=== PATIENT | female | born 1985 | race African-American/Black ===

== ENCOUNTER 2018-12-02 13:04 | Emergency (ER) | payer SELFPAY ==
--- NOTE | 2018-12-02 14:19 | RAD REPORT ---
EXAM DESCRIPTION: US - Abdomen Exam Limited - 12/02/2018 2:13 pm CLINICAL HISTORY: RUQ abd pain COMPARISON: No comparisons FINDINGS: The gallbladder demonstrates a large shadowing gallstone. No pericholecystic fluid or gall bladder wall thickening. The common bile duct is normal measuring 3 mm. The liver demonstrates no findings of intrahepatic biliary dilatation. IMPRESSION: Cholelithiasis.
[2018-12-02 14:25] LABS: Specific Gravity 1.025 (1.005-1.030)
[2018-12-02] MEDS ORDERED: ONDANSETRON 4 MG/2 ML VIAL ONE (14:25)
[2018-12-02] MEDS ORDERED: KETOROLAC 30 MG/ML INJ ONE (14:25)
[2018-12-02 14:40] LABS: Urine Bacteria 20-50 /HPF (<20); Urine Culture Reflex Order REFLEXED; Urine RBC <5 /HPF (NONE SEEN)
[2018-12-02] MEDS ORDERED: FENTANYL CITR 100 MCG/2 ML ONE (14:56)
[2018-12-02 14:58] LABS: Absolute Lymphocytes (CBC) 2.5 K/uL (0.7-4.9); Basophils % 0.6 % (0-1.3); Hematocrit 34.8 % (36.0-45.0); Lymphocytes % 24.2 % (15.3-44.8); MPV 8.5 fL (7.6-11.3); RBC Red Blood Cell Count 4.42 M/uL (3.86-4.86)
[2018-12-02 15:08] LABS: ALT/SGPT 18 U/L (12-78); AST/SGOT 11 U/L (15-37); Albumin 3.7 g/dL (3.4-5.0); Alkaline Phosphatase 90 U/L (45-117); BUN Blood Urea Nitrogen 10 mg/dL (7-18); Bicarbonate 25 mmol/L (21-32); Bilirubin Direct < 0.1 mg/dL (0-0.2); Bilirubin Total 0.3 mg/dL (0.2-1.0); Glucose Level 102 mg/dL (74-106); Lipase 104 U/L (73-393); Potassium 3.9 mmol/L (3.5-5.1); Protein, Total 7.5 g/dL (6.4-8.2); Sodium Level 140 mmol/L (136-145)
--- NOTE | 2018-12-02 16:09 | RAD REPORT ---
EXAM DESCRIPTION: CT - Abdomen Pelvis W Contrast - 12/02/2018 3:44 pm CLINICAL HISTORY: Abdominal pain COMPARISON: none. TECHNIQUE: Computed axial tomography of the abdomen pelvis was obtained. 100 cc Isovue-300 was admin istered intravenously. Oral contrast was not requested which limits evaluation of bowel. All CT scans are performed using dose optimization technique as appropriate and may include automated exposure control or mA/KV adjustment according to patient size. FINDINGS: 18 millimeter gallstone. Gallbladder wall does not appear thickened. The liver, spleen, pancreas, adrenal and kidneys appear unremarkable. There is no evidence of diverticulitis. Appendix is normal caliber Moderate amount stool within the colon IMPRESSION: Cholelithiasis
--- NOTE | 2018-12-02 17:09 | EDPHYS ---
Physician Documentation [facility] Name: Eliz Carbone Age: 33 yrs Sex: Female : 1985 Arrival Date: 12/02/2018 Time: 13:07 Bed 19 Private MD: ED Physician Leonardo Nuñez HPI: 12/02 13:52 This 33 yrs old Black Female presents to ER via Ambulatory with complaints of Abdominal wa Pain. 13:52 The patient presents with abdominal pain in the epigastric area, in the upper abdomen, wa in the right upper quadrant. Onset: The symptoms/episode began/occurred today. The symptoms do not radiate. Associated signs and symptoms: none. The symptoms are described as crampy. Modifying factors: The symptoms are alleviated by nothing, the symptoms are aggravated by nothing. Severity of pain: At its worst the pain was moderate in the emergency department the pain is actually worse moderately. The patient has experienced similar episodes in the past, a few times, h/o gallstones. The patient has not recently seen a physician. states has h/o gallstones. RUQ abd pain today. pt tearful. denies n/v. denies fever. . 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 - Social history:: Smoking status: Patient uses tobacco products, cigars. - Ebola Screening: : Patient negative for fever greater than or equal to 101.5 degrees Fahrenheit, and additional compatible Ebola Virus Disease symptoms Patient denies exposure to infectious person Patient denies travel to an Ebola-affected area in the 21 days before illness onset No symptoms or risks identified at this time. - Family history:: not pertinent. - Hospitalizations: : No recent hospitalization is reported. ROS: 13:54 Constitutional: Negative for fever, chills, and weight loss, Eyes: Negative for injury, wa pain, redness, and discharge, ENT: Negative for injury, pain, and discharge, Neck: Negative for injury, pain, and swelling, Cardiovascular: Negative for chest pain, palpitations, and edema, Respiratory: Negative for shortness of breath, cough, wheezing, and pleuritic chest pain, Back: Negative for injury and pain, : Negative for injury, bleeding, discharge, and swelling, MS/Extremity: Negative for injury and deformity, Skin: Negative for injury, rash, and discoloration, Neuro: Negative for headache, weakness, numbness, tingling, and seizure, Psych: Negative for depression, anxiety, suicide ideation, homicidal ideation, and hallucinations. 13:54 Abdomen/GI: Positive for abdominal pain, of the epigastric area and right upper quadrant, Negative for nausea, vomiting, and diarrhea. 13:54 All other systems are negative. Exam: 13:54 Constitutional: This is a well developed, well nourished patient who is awake, alert, wa and in no acute distress. Head/Face: Normocephalic, atraumatic. Eyes: Pupils equal round and reactive to light, extra-ocular motions intact. Lids and lashes normal. Conjunctiva and sclera are non-icteric and not injected. Cornea within normal limits. Periorbital areas with no swelling, redness, or edema. ENT: Nares patent. No nasal discharge, no septal abnormalities noted. Tympanic membranes are normal and external auditory canals are clear. Oropharynx with no redness, swelling, or masses, exudates, or evidence of obstruction, uvula midline. Mucous membranes moist. Neck: Trachea midline, no thyromegaly or masses palpated, and no cervical lymphadenopathy. Supple, full range of motion without nuchal rigidity, or vertebral point tenderness. No Meningismus. Chest/axilla: Normal chest wall appearance and motion. Nontender with no deformity. No lesions are appreciated. Cardiovascular: Regular rate and rhythm with a normal S1 and S2. No gallops, murmurs, or rubs. Normal PMI, no JVD. No pulse deficits. Respiratory: Lungs have equal breath sounds bilaterally, clear to auscultation and percussion. No rales, rhonchi or wheezes noted. No increased work of breathing, no retractions or nasal flaring. Back: No spinal tenderness. No costovertebral tenderness. Full range of motion. Skin: Warm, dry with normal turgor. Normal color with no rashes, no lesions, and no evidence of cellulitis. MS/ Extremity: Pulses equal, no cyanosis. Neurovascular intact. Full, normal range of motion. Neuro: Awake and alert, GCS 15, oriented to person, place, time, and situation. Cranial nerves II-XII grossly intact. Motor strength 5/5 in all extremities. Sensory grossly intact. Cerebellar exam normal. Normal gait. Psych: Awake, alert, with orientation to person, place and time. Behavior, mood, and affect are within normal limits. 13:54 Abdomen/GI: Inspection: abdomen appears normal, Bowel sounds: normal, in all quadrants, Palpation: moderate abdominal tenderness, in the epigastric area and right upper quadrant, no appreciated organomegaly. Vital Signs: 13:29 BP 128 / 77; Pulse 92; Resp 16 S; Temp 98.1(O); Pulse Ox 100% on R/A; Pain 10/10; iw 14:47 BP 136 / 93; Pulse 88; Resp 16; Pulse Ox 97% ; bp 16:30 BP 118 / 84; Pulse 63; Resp 17; Pulse Ox 98% ; bp 17:21 BP 121 / 87; Pulse 72; Resp 17; Temp 98.1; Pulse Ox 100% ; bp MDM: 13:[address] 13:55 Differential diagnosis: appendicitis, bowel obstruction, cholecystitis, Cholelithiasis, ct gastritis, gastroesophageal reflux disease, non-specific abd pain. 17:06 Data reviewed: vital signs, nurses notes. Test interpretation: by ED physician or ct midlevel provider: labs noted wnl. US abd and CT abd/pelvis: noted for gallstones. no "itis". Response to treatment: the patient's symptoms have markedly improved after treatment. ED course: improved. will d/c home with f/u with general surgery. 12/02 13:47 Order name: Basic Metabolic Panel; Complete Time: 16:14 ct 12/02 13:47 Order name: CBC with Diff; Complete Time: 16:14 ct 12/02 13:47 Order name: Hepatic Function; Complete Time: 16:14 ct 12/02 13:47 Order name: Lipase; Complete Time: 16:14 ct 12/02 13:47 Order name: Urine Microscopic Only; Complete Time: 14:48 ct 12/02 14:16 Order name: Urine Dipstick--Ancillary (enter results) 12/02 13:47 Order name: IV Saline Lock; Complete Time: 14:45 ct 12/02 13:47 Order name: US Abdomen Limited; Complete Time: 14:48 ct 12/02 13:50 Order name: CT Abd/Pelvis - IV Contrast Only; Complete Time: 16:58 ct 12/02 14:18 Order name: Test, Urine; Complete Time: 14:47 EDDE 12/02 14:47 Order name: Urine Culture [facility] 12/02 13:47 Order name: Labs collected and sent; Complete Time: 14:45 ct 12/02 13:47 Order name: Urine Dipstick-Ancillary (obtain specimen); Complete Time: 14:16 ct 12/02 13:47 Order name: Urine Test (obtain specimen); Complete Time: 14:16 ct Administered Medications: 14:07 Drug: TORadol 30 mg Route: IVP; Site: right forearm; bp 16:54 Follow up: Response: Pain is decreased bp 14:07 Drug: Zofran 4 mg Route: IVP; Site: right forearm; bp 16:54 Follow up: Response: Nausea is decreased bp 15:00 Drug: fentaNYL (PF) 50 mcg Route: IVP; Site: right forearm; rb1 16:54 Follow up: Response: Pain is decreased bp Disposition: 12/02/18 17:08 Discharged to Home. Impression: Acute upper abdominal pain, cholelithiasis. - Condition is Stable. - Discharge Instructions: Cholelithiasis, [id number]. - Prescriptions for Zofran 4 mg Oral Tablet - take 1 tablet by ORAL route every 12 hours As needed; 20 tablet. Tramadol 50 mg Oral Tablet - take 1 tablet by ORAL route every 8 hours as needed; 20 tablet. - Medication Reconciliation Form, Thank You Letter, Antibiotic Education, Prescription Opioid Use form. - Follow up: Luigi Maxwell MD; When: 2 - 3 days; Reason: Re-evaluation by your physician. - Problem is new. - Symptoms have improved. - Notes: follow up with the surgeon for evaluation of your gallbladder as you may need surgery. take medication as prescribed. return here for sever pain and or vomiting Signatures: Dispatcher [employer] Meryl Hunter RN RN Florinda Dick RN RN rb1 Leonardo Nuñez MD MD wa Peltier, Brian, RN RN bp Corrections: (The following items were deleted from the chart) 16:09 16:08 Skin: lesion(s), noted, and can be described as noted stage II skin breakdown wa over the gluts bilaterally, wa 17:22 17:08 12/02/2018 17:08 Discharged to Home. Impression: Acute upper abdominal pain; bp cholelithiasis. Condition is Stable. Forms are Medication Reconciliation Form, Thank You Letter, Antibiotic Education, Prescription Opioid Use. Follow up: Luigi Maxwell; When: 2 - 3 days; Reason: Re-evaluation by your physician. Problem is new. Symptoms have improved. wa
--- NOTE | 2018-12-02 17:09 | ER ---
Nurse's Notes [facility] Name: Eliz Carbone Age: 33 yrs Sex: Female : 1985 Arrival Date: 12/02/2018 Time: 13:07 Bed 19 Private MD: Diagnosis: Acute upper abdominal pain;cholelithiasis Presentation: 12/02 13:26 Presenting complaint: Patient states: hx of gallstones, RUQ pain radiating to mid abd iw area since this morning, vomited once, pain is cramping 12/25. Transition of care: patient was not received from another setting of care. Onset of symptoms was December 02, 2018. Risk Assessment: Do you want to hurt yourself or someone else? Patient reports no desire to harm self or others. Initial Sepsis Screen: Does the patient meet any 2 criteria? No. Patient's initial sepsis screen is negative. Does the patient have a suspected source of infection? No. Patient's initial sepsis screen is negative. Care prior to arrival: None. 13:26 Method Of Arrival: Ambulatory iw 13:26 Acuity: ESTHELA 3 iw Triage Assessment: 13:30 General: Appears in no apparent distress. uncomfortable, obese, Behavior is bp cooperative, appropriate for age, anxious. Pain: Complains of pain in right upper quadrant. EENT: No deficits noted. Neuro: No deficits noted. Cardiovascular: No deficits noted. Respiratory: No deficits noted. GI: Reports upper abdominal pain, nausea. : No signs and/or symptoms were reported regarding the genitourinary system. Derm: No deficits noted. Musculoskeletal: No deficits noted. 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 - Social history:: Smoking status: Patient uses tobacco products, cigars. - Ebola Screening: : Patient negative for fever greater than or equal to 101.5 degrees Fahrenheit, and additional compatible Ebola Virus Disease symptoms Patient denies exposure to infectious person Patient denies travel to an Ebola-affected area in the 21 days before illness onset No symptoms or risks identified at this time. - Family history:: not pertinent. - Hospitalizations: : No recent hospitalization is reported. Screenin:34 Abuse screen: Denies threats or abuse. Denies injuries from another. Nutritional bp screening: No deficits noted. Tuberculosis screening: No symptoms or risk factors identified. Fall Risk None identified. Assessment: 13:34 General: SEE TRIAGE NOTE. bp 13:34 GI: Bowel sounds present X 4 quads. Abd is soft X 4 quads. bp 13:56 Reassessment: PT TO U/S. bp 15:00 Reassessment: Patient and/or family updated on plan of care and expected duration. Pain bp level reassessed. Patient is alert, oriented x 3, equal unlabored respirations, skin warm/dry/pink. CT PENDING. 16:31 Reassessment: PT RETURNED FROM CT. ALL CURRENT ORDERS COMPLETED. bp 17:19 Reassessment: PT D/C HOME AMBULATORY, DX WITH CHOLELITHIASIS. bp Vital Signs: 13:29 BP 128 / 77; Pulse 92; Resp 16 S; Temp 98.1(O); Pulse Ox 100% on R/A; Pain 10/10; iw 14:47 BP 136 / 93; Pulse 88; Resp 16; Pulse Ox 97% ; bp 16:30 BP 118 / 84; Pulse 63; Resp 17; Pulse Ox 98% ; bp 17:21 BP 121 / 87; Pulse 72; Resp 17; Temp 98.1; Pulse Ox 100% ; bp ED Course: 13:07 Patient arrived in ED. mr 13:22 eLonardo Nuñez MD is Attending Physician. wa 13:23 Ej Valerio, SHARRI is Primary Nurse. bp 13:28 Triage completed. iw 13:31 Arm band placed on. iw 13:34 Patient has correct armband on for positive identification. Bed in low position. Call bp light in reach. Side rails up X2. 14:00 Patient maintains SpO2 saturation greater than 95% on room air. jp3 14:00 Urine collected: clean catch specimen, clear, neisha colored. jp3 14:15 US Abdomen Limited In Process Unspecified. EDMS 14:16 Urine Microscopic Only Sent. jp3 14:30 Missed attempt(s): 22 gauge in right wrist. Bleeding controlled, band aid applied, jp3 catheter tip intact. 14:30 Inserted saline lock: 22 gauge in right forearm, using aseptic technique. Blood bp collected. 15:45 CT Abd/Pelvis - IV Contrast Only In Process Unspecified. EDMS 16:54 Urine Culture Sent. bp 17:07 Luigi Maxwell MD is Referral Physician. wa 17:20 No provider procedures requiring assistance completed. IV discontinued, intact, bp bleeding controlled, No redness/swelling at site. Pressure dressing applied. Administered Medications: 14:07 Drug: TORadol 30 mg Route: IVP; Site: right forearm; bp 16:54 Follow up: Response: Pain is decreased bp 14:07 Drug: Zofran 4 mg Route: IVP; Site: right forearm; bp 16:54 Follow up: Response: Nausea is decreased bp 15:00 Drug: fentaNYL (PF) 50 mcg Route: IVP; Site: right forearm; rb1 16:54 Follow up: Response: Pain is decreased bp Outcome: 17:08 Discharge ordered by . wa 17:20 Discharged to home ambulatory. bp 17:20 Condition: stable 17:20 Discharge instructions given to patient, Instructed on discharge instructions, follow up and referral plans. medication usage, Demonstrated understanding of instructions, follow-up care, medications, Prescriptions given X 2. 17:22 Patient left the ED. bp Signatures: Dispatcher [employer] EDIA Edmundo Rajani Meryl Salas, RN Florinda Sevilla, SHARRI RN rb1 Leonardo Nuñez MD MD wa Peltier, Brian, RN RN bp Monico Hurtado jp3
[2018-12-02 17:30] VITALS: TEMP 98.1
[2018-12-02 17:35] VITALS: BP 121/87; O2SAT 100
[2018-12-02 20:38] LABS: Urine Blood NEGATIVE (NEG); Urine Glucose NEGATIVE (NEG); Urine Protein NEGATIVE (NEG)
== END 2018-12-02 17:22 | disposition home or self-care (01) ==
LOC: ER 13:04
DX: K80.20 Calculus of gallbladder without cholecystitis without obstruction (principal); F17.290 Nicotine dependence, other tobacco product, uncomplicated; Z88.2 Allergy status to sulfonamides
CPT/HCPCS: 36415; 74177; 76705; 80048; 80076; 81003; 81015; 81025; 83690; 85025; 87086; 87088; 96374; 96375; 99284; J2405; J3010; Q9967

== ENCOUNTER 2018-12-17 20:02 | Emergency (ER) | payer SELFPAY ==
[2018-12-17] MEDS ORDERED: FAMOTIDINE 20 MG/2 ML VIAL IV ONE (21:23)
[2018-12-17] MEDS ORDERED: NA CHLORIDE 0.9% 1,000 ML ONE (21:23)
[2018-12-17] MEDS ORDERED: KETOROLAC 30 MG/ML INJ ONE ×2 (21:23→23:29)
[2018-12-17] MEDS ORDERED: DIPHENHYDRAMINE 50 MG/ML VIAL ONE (21:23)
[2018-12-17 22:10] LABS: Absolute Lymphocytes (CBC) 3.3 K/uL (0.7-4.9); Basophils % 0.2 % (0-1.3); Hematocrit 36.6 % (36.0-45.0); Lymphocytes % 24.1 % (15.3-44.8); MPV 8.1 fL (7.6-11.3); RBC Red Blood Cell Count 4.62 M/uL (3.86-4.86)
[2018-12-17 22:27] LABS: ALT/SGPT 19 U/L (12-78); AST/SGOT 14 U/L (15-37); Alkaline Phosphatase 92 U/L (45-117); BUN Blood Urea Nitrogen 9 mg/dL (7-18); Bicarbonate 26 mmol/L (21-32); Bilirubin Direct 0.1 mg/dL (0-0.2); Bilirubin Total 0.5 mg/dL (0.2-1.0); Glucose Level 94 mg/dL (74-106); Lipase 46 U/L (73-393); Potassium 3.8 mmol/L (3.5-5.1); Protein, Total 7.9 g/dL (6.4-8.2); Sodium Level 141 mmol/L (136-145)
--- NOTE | 2018-12-18 00:19 | ER ---
Nurse's Notes [facility] Name: Eliz Carbone Age: 33 yrs Sex: Female : 1985 Arrival Date: 12/17/2018 Time: 20:08 Bed 25 Private MD: Diagnosis: Allergy status to unspecified drugs, medicaments and biological substances status;Upper abdominal pain, unspecified;Cholelithiasis Presentation: 12/17 20:19 Presenting complaint: Patient states: RUQ pain started around 1700 today. I have ca1 gallstones and is scheduled to have a surgery but I have to go back home to [place] for that. Denies N/V/D. Pt also c/o of rash all over which started at the groin around 1230 today. Transition of care: patient was not received from another setting of care. Onset of symptoms was December 17, 2018 at 17:00. Risk Assessment: Do you want to hurt yourself or someone else? Patient reports no desire to harm self or others. Initial Sepsis Screen: Does the patient meet any 2 criteria? No. Patient's initial sepsis screen is negative. Does the patient have a suspected source of infection? No. Patient's initial sepsis screen is negative. Care prior to arrival: None. 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 - Social history:: Smoking status: Patient uses tobacco products, cigars. - Ebola Screening: : Patient negative for fever greater than or equal to 101.5 degrees Fahrenheit, and additional compatible Ebola Virus Disease symptoms Patient denies exposure to infectious person Patient denies travel to an Ebola-affected area in the 21 days before illness onset No symptoms or risks identified at this time. Screenin:25 Abuse screen: Denies threats or abuse. Denies injuries from another. Nutritional ca1 screening: No deficits noted. Tuberculosis screening: No symptoms or risk factors identified. Fall Risk None identified. Assessment: 20:25 General: Appears in no apparent distress. comfortable, Behavior is calm, cooperative, ca1 appropriate for age. Pain: Complains of pain in right upper quadrant Pain does not radiate. Pain currently is 8 out of 10 on a pain scale. Quality of pain is described as sharp, Pain began 4 hours ago. Is continuous. Neuro: Level of Consciousness is awake, alert, obeys commands, Oriented to person, place, time, situation. Cardiovascular: Heart tones S1 S2 present Capillary refill < 3 seconds Patient's skin is warm and dry. Pulses are all present. Respiratory: Airway is patent Respiratory effort is even, unlabored, Respiratory pattern is regular, symmetrical, Breath sounds are clear bilaterally. GI: Abdomen is round non-distended, Bowel sounds present X 4 quads. Abd is soft X 4 quads Abdomen is tender to palpation in right upper quadrant. : No deficits noted. No signs and/or symptoms were reported regarding the genitourinary system. EENT: No deficits noted. No signs and/or symptoms were reported regarding the EENT system. Derm: Skin is intact, is healthy with good turgor, Skin is pink, warm \T\ dry. Rash noted that is raised, on back, pelvis, right arm and left arm. Musculoskeletal: Circulation, motion, and sensation intact. Capillary refill < 3 seconds, Range of motion: intact in all extremities. 21:20 Reassessment: Patient appears in no apparent distress at this time. Patient and/or ca1 family updated on plan of care and expected duration. Pain level reassessed. Patient is alert, oriented x 3, equal unlabored respirations, skin warm/dry/pink. 22:23 Reassessment: Patient appears in no apparent distress at this time. Patient and/or ca1 family updated on plan of care and expected duration. Pain level reassessed. Patient is alert, oriented x 3, equal unlabored respirations, skin warm/dry/pink. 23:10 Reassessment: Patient appears in no apparent distress at this time. Patient and/or ca1 family updated on plan of care and expected duration. Pain level reassessed. Patient is alert, oriented x 3, equal unlabored respirations, skin warm/dry/pink. Ultrasound at bedside. Vital Signs: 20:23 BP 127 / 91; Pulse 98; Resp 17 S; Temp 98.5(O); Pulse Ox 100% on R/A; Weight 90.72 kg ca1 (R); Height 5 ft. 8 in. (172.72 cm) (R); Pain 8/10; 21:30 BP 115 / 88; Pulse 95; Resp 16 S; Pulse Ox 95% on R/A; ca1 22:24 BP 121 / 79; Pulse 96; Resp 16 S; Pulse Ox 99% on R/A; ca1 23:23 BP 95 / 67; Pulse 89; Resp 17 S; Pulse Ox 99% ; ca1 20:23 Body Mass Index 30.41 (90.72 kg, 172.72 cm) ca1 ED Course: 19:55 Inserted saline lock: 22 gauge in right hand, using aseptic technique. tr5 20:08 Patient arrived in ED. cf2 20:19 Viridiana Coughlin, SHARRI is Primary Nurse. ca1 20:22 Triage completed. ca1 20:23 Arm band placed on right wrist. ca1 20:25 Patient has correct armband on for positive identification. Bed in low position. Call ca1 light in reach. Side rails up X 1. Pulse ox on. NIBP on. Warm blanket given. 20:25 No provider procedures requiring assistance completed. ca1 20:31 Chery White FNP-C is PHCP. snw 20:31 Jorge Gilbert MD is Attending Physician. snw 21:30 Missed attempt(s): 22 gauge in left antecubital area. Bleeding controlled, band aid ca1 applied, catheter tip intact. 21:35 Missed attempt(s): 22 gauge in right antecubital area. Bleeding controlled, band aid ca1 applied, catheter tip intact. 22:03 Initial lab(s) drawn, by me, sent to lab. tr5 23:20 US Abdomen Limited In Process Unspecified. EDMS 12/18 00:43 IV discontinued. tr5 Administered Medications: 12/17 22:03 Drug: Benadryl 25 mg Route: IVP; Site: right hand; tr5 23:31 Follow up: Response: No adverse reaction; Marked relief of symptoms ca1 22:03 Drug: TORadol - Ketorolac 15 mg Route: IVP; Site: right hand; tr5 23:30 Follow up: Response: No adverse reaction; Pain is unchanged, physician notified ca1 22:04 Drug: NS 0.9% 1000 ml Route: IV; Rate: 1 bolus; Site: right hand; tr5 23:31 Follow up: Response: No adverse reaction; IV Status: Completed infusion; IV Intake: ca1 1000ml 22:04 Drug: Pepcid 10 mg Route: IVP; Site: right hand; tr5 23:31 Follow up: Response: No adverse reaction ca1 23:30 Drug: TORadol - Ketorolac 15 mg Route: IVP; Site: right hand; ca1 23:55 Follow up: Response: No adverse reaction; Pain is decreased ca1 Intake: 23:31 IV: 1000ml; Total: 1000ml. ca1 Outcome: 12/18 00:18 Discharge ordered by MD. lopez 00:42 Discharged to home ambulatory. tr5 00:42 Condition: stable 00:42 Discharge instructions given to patient, Instructed on discharge instructions, follow up and referral plans. medication usage, Demonstrated understanding of instructions, follow-up care, medications, Prescriptions given X 3. 00:43 Patient left the ED. tr5 Signatures: Dispatcher [employer] EDMS Chery White, SUPERVISOR FINISH END-C SUPERVISOR FINISH END-Moisésw Viridiana Coughlin RN RN ca1 Zeus Stiles RN RN tr5 Tristin Gauthier2
--- NOTE | 2018-12-18 00:19 | EDPHYS ---
Physician Documentation [facility] Name: Eliz Carbone Age: 33 yrs Sex: Female : 1985 Arrival Date: 12/17/2018 Time: 20:08 Bed 25 Private MD: ED Physician Jorge Gilbert HPI: 12/18 00:23 This 33 yrs old Black Female presents to ER via Ambulatory with complaints of Abdominal snw Pain, Rash. 00:23 The patient presents with abdominal pain in the right upper quadrant. Onset: The snw symptoms/episode began/occurred suddenly, and became worse and became persistent. The symptoms radiate to right back. Associated signs and symptoms: Pertinent positives: itching. The symptoms are described as constant, stabbing. Severity of pain: At its worst the pain was moderate in the emergency department the pain is unchanged. The patient has experienced similar episodes in the past, multiple times. Pt with known gallstones, just moved from [place] and needs a new doctor when her insurance. 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 - Social history:: Smoking status: Patient uses tobacco products, cigars. - Ebola Screening: : Patient negative for fever greater than or equal to 101.5 degrees Fahrenheit, and additional compatible Ebola Virus Disease symptoms Patient denies exposure to infectious person Patient denies travel to an Ebola-affected area in the 21 days before illness onset No symptoms or risks identified at this time. ROS: 12/18 00:21 Constitutional: Negative for fever, chills, and weight loss, Eyes: Negative for injury, snw pain, redness, and discharge, ENT: Negative for injury, pain, and discharge, Neck: Negative for injury, pain, and swelling, Cardiovascular: Negative for chest pain, palpitations, and edema, Respiratory: Negative for shortness of breath, cough, wheezing, and pleuritic chest pain, : Negative for injury, bleeding, discharge, and swelling, MS/Extremity: Negative for injury and deformity, Skin: Negative for injury and discoloration, + rash/hives, s/p having a 5 hour energy this am Neuro: Negative for headache, weakness, numbness, tingling, and seizure, Psych: Negative for depression, anxiety, suicide ideation, homicidal ideation, and hallucinations. Abdomen/GI: Positive for abdominal pain, of the right upper quadrant. Back: Positive for radiated pain, of the right mid back. Exam: 12/17 21:29 Constitutional: This is a well developed, well nourished patient who is awake, alert, snw and in no acute distress. Head/Face: Normocephalic, atraumatic. Eyes: Pupils equal round and reactive to light, extra-ocular motions intact. Lids and lashes normal. Conjunctiva and sclera are non-icteric and not injected. Cornea within normal limits. Periorbital areas with no swelling, redness, or edema. ENT: Nares patent. No nasal discharge, no septal abnormalities noted. Tympanic membranes are normal and external auditory canals are clear. Oropharynx with no redness, swelling, or masses, exudates, or evidence of obstruction, uvula midline. Mucous membranes moist. Neck: Trachea midline, no thyromegaly or masses palpated, and no cervical lymphadenopathy. Supple, full range of motion without nuchal rigidity, or vertebral point tenderness. No Meningismus. Chest/axilla: Normal chest wall appearance and motion. Nontender with no deformity. No lesions are appreciated. Cardiovascular: Regular rate and rhythm with a normal S1 and S2. No gallops, murmurs, or rubs. Normal PMI, no JVD. No pulse deficits. Respiratory: Lungs have equal breath sounds bilaterally, clear to auscultation and percussion. No rales, rhonchi or wheezes noted. No increased work of breathing, no retractions or nasal flaring. Back: No spinal tenderness. No costovertebral tenderness. Full range of motion. MS/ Extremity: Pulses equal, no cyanosis. Neurovascular intact. Full, normal range of motion. Neuro: Awake and alert, GCS 15, oriented to person, place, time, and situation. Cranial nerves II-XII grossly intact. Motor strength 5/5 in all extremities. Sensory grossly intact. Cerebellar exam normal. Normal gait. Psych: Awake, alert, with orientation to person, place and time. Behavior, mood, and affect are within normal limits. Abdomen/GI: Inspection: abdomen appears normal, Bowel sounds: normal, Palpation: moderate abdominal tenderness, in the right upper quadrant. Back: referred pain to right upper back. Vital Signs: 20:23 BP 127 / 91; Pulse 98; Resp 17 S; Temp 98.5(O); Pulse Ox 100% on R/A; Weight 90.72 kg ca1 (R); Height 5 ft. 8 in. (172.72 cm) (R); Pain 8/10; 21:30 BP 115 / 88; Pulse 95; Resp 16 S; Pulse Ox 95% on R/A; ca1 22:24 BP 121 / 79; Pulse 96; Resp 16 S; Pulse Ox 99% on R/A; ca1 23:23 BP 95 / 67; Pulse 89; Resp 17 S; Pulse Ox 99% ; ca1 20:23 Body Mass Index 30.41 (90.72 kg, 172.72 cm) ca1 MDM: 21:02 Patient medically screened. snw 12/18 00:20 Data reviewed: vital signs, nurses notes. Data interpreted: Pulse oximetry: on room air snw is 99 %. Interpretation: normal. Counseling: I had a detailed discussion with the patient and/or guardian regarding: the historical points, exam findings, and any diagnostic results supporting the discharge/admit diagnosis, lab results, radiology results, the need for outpatient follow up, to return to the emergency department if symptoms worsen or persist or if there are any questions or concerns that arise at home. Special discussion: Based on the patient's Hx, exam, and Dx evaluation, there is no indication for emergent surgery or inpatient Tx. It is understood by the patient/guardian that if the Sx's persist or worsen they need to return immediately for re-evaluation. Based on the history and exam findings, there is no indication for further emergent testing or inpatient evaluation. I discussed with the patient/guardian the need to see the general surgeon for further evaluation of the symptoms. I discussed with the patient/guardian the need to see the primary care provider for further evaluation of the symptoms. 12/17 21:01 Order name: Strep snw 12/17 21:12 Order name: Basic Metabolic Panel; Complete Time: 22:28 snw 12/17 21:12 Order name: CBC with Diff; Complete Time: 22:15 snw 12/17 21:12 Order name: Hepatic Function; Complete Time: 22:28 snw 12/17 21:12 Order name: Lipase; Complete Time: 22:28 snw 12/17 21:30 Order name: US Abdomen Limited snw 12/17 21:12 Order name: Labs collected and sent; Complete Time: 22:14 snw Administered Medications: 12/17 22:03 Drug: Benadryl 25 mg Route: IVP; Site: right hand; tr5 23:31 Follow up: Response: No adverse reaction; Marked relief of symptoms ca1 22:03 Drug: TORadol - Ketorolac 15 mg Route: IVP; Site: right hand; tr5 23:30 Follow up: Response: No adverse reaction; Pain is unchanged, physician notified ca1 22:04 Drug: NS 0.9% 1000 ml Route: IV; Rate: 1 bolus; Site: right hand; tr5 23:31 Follow up: Response: No adverse reaction; IV Status: Completed infusion; IV Intake: ca1 1000ml 22:04 Drug: Pepcid 10 mg Route: IVP; Site: right hand; tr5 23:31 Follow up: Response: No adverse reaction ca1 23:30 Drug: TORadol - Ketorolac 15 mg Route: IVP; Site: right hand; ca1 23:55 Follow up: Response: No adverse reaction; Pain is decreased ca1 Disposition: 12/18 05:12 Co-signature as Attending Physician, Jorge Gilbert MD Available for consultation at ps1 all times . Disposition: 12/18/18 00:18 Discharged to Home. Impression: Allergy status to unspecified drugs, medicaments and biological substances status, Upper abdominal pain, unspecified, Cholelithiasis. - Condition is Stable. - Discharge Instructions: Abdominal Pain, Adult, Allergies, Adult, Biliary Colic, Adult, Fat and Cholesterol Restricted Diet, Cholelithiasis, Rehydration, Adult. - Prescriptions for Bentyl 20 mg Oral Tablet - take 1 tablet by ORAL route every 6 hours As needed; 20 tablet. Diclofenac Sodium 75 mg Oral Tablet Sustained Release - take 1 tablet by ORAL route 2 times per day; 30 tablet. promethazine 25 mg Oral Tablet - take 1 tablet by ORAL route every 6 hours As needed; 20 tablet. - Work release form, Medication Reconciliation Form, Thank You Letter, Antibiotic Education, Prescription Opioid Use form. - Follow up: Emergency Department; When: As needed; Reason: Worsening of condition. Follow up: Private Physician; When: 1 - 2 days; Reason: Recheck today's complaints, Continuance of care, Re-evaluation by your physician. Signatures: Dispatcher [employer] EDMS Chery White, RACK MAKER-C RACK MAKER-Csnw Jorge Gilbert MD MD ps1 Viridiana Coughlin RN RN ca1 Zeus Stiles RN RN tr5 Corrections: (The following items were deleted from the chart) 00:43 00:18 12/18/2018 00:18 Discharged to Home. Impression: Allergy status to unspecified tr5 drugs, medicaments and biological substances status; Upper abdominal pain, unspecified; Cholelithiasis. Condition is Stable. Forms are Medication Reconciliation Form, Thank You Letter, Antibiotic Education, Prescription Opioid Use. Follow up: Emergency Department; When: As needed; Reason: Worsening of condition. Follow up: Private Physician; When: 1 - 2 days; Reason: Recheck today's complaints, Continuance of care, Re-evaluation by your physician. snw
[2018-12-18 00:48] VITALS: TEMP 98.5
[2018-12-18 00:50] VITALS: O2SAT 99
[2018-12-18 00:51] VITALS: BP 95/67
--- NOTE | 2018-12-18 08:09 | RAD REPORT ---
EXAM DESCRIPTION: US - Abdomen Exam Limited - 12/17/2018 11:19 pm CLINICAL HISTORY: ABD PAIN COMPARISON: Abdomen Exam Limited dated 12/02/2018 FINDINGS: The gallbladder demonstrates a shadowing gallstone. No pericholecystic fluid or gallbladde r wall thickening. The common bile duct is normal measuring 3 mm. The liver demonstrates no findings of intrahepatic biliary dilatation. IMPRESSION: Cholelithiasis.
== END 2018-12-18 00:43 | disposition home or self-care (01) ==
LOC: ER 20:02
DX: K80.20 Calculus of gallbladder without cholecystitis without obstruction (principal); Z88.9 Allergy status to unspecified drugs, medicaments and biological substances; Z72.0 Tobacco use; Z88.2 Allergy status to sulfonamides
CPT/HCPCS: 36415; 76705; 80048; 80076; 83690; 85025; 87070; 87081; 96361; 96374; 96375; 99284; J7030

== ENCOUNTER 2019-02-10 16:17 | Emergency (ER) | payer SELFPAY ==
--- OUTSIDE RECORDS SUMMARY | 2019-02-10 16:19 | XMS REPORT ---
:1985 Author Organization [facility] Address [address] [place] [address] [address] [place] [address] Care Team Providers Name Role Phone Unavailable Unavailable Unavailable Problems This patient has no known problems. Allergies, Adverse Reactions, Alerts This patient has no known allergies or adverse reactions. Medications This patient has no known medications. Encounters Start End Encounter Admission Attending Care Care Encounter Date/Time Date/Time Type Type Clinicians Facility Department ID 2018-11-19 2018-11-19 Emergency E [id number] 18:06:00 18:06:00 2018-08-25 2018-08-25 Emergency E [id number] 09:01:00 09:01:00
[2019-02-10] MEDS ORDERED: MORPHINE 2 MG/ML SYR ONE (16:58)
[2019-02-10] MEDS ORDERED: NA CHLORIDE 0.9% 1,000 ML ONE (16:58)
[2019-02-10] MEDS ORDERED: ONDANSETRON 4 MG/2 ML VIAL ONE (16:58)
[2019-02-10 17:04] LABS: Urine Blood NEGATIVE (NEG); Urine Glucose NEGATIVE (NEG); Urine Protein NEGATIVE (NEG); Urine pH 6.5 (5.0-7.0)
[2019-02-10 17:05] LABS: Absolute Lymphocytes (CBC) 2.5 K/uL (0.7-4.9); Basophils % 0.4 % (0-1.3); Hematocrit 34.1 % (36.0-45.0); Lymphocytes % 25.1 % (15.3-44.8); MPV 8.2 fL (7.6-11.3); RBC Red Blood Cell Count 4.36 M/uL (3.86-4.86)
[2019-02-10 17:19] LABS: ALT/SGPT 27 U/L (12-78); AST/SGOT 23 U/L (15-37); Albumin 3.5 g/dL (3.4-5.0); Alkaline Phosphatase 93 U/L (45-117); BUN Blood Urea Nitrogen 12 mg/dL (7-18); Bicarbonate 25 mmol/L (21-32); Bilirubin Direct < 0.1 mg/dL (0-0.2); Bilirubin Total 0.3 mg/dL (0.2-1.0); Glucose Level 99 mg/dL (74-106); Lipase 82 U/L (73-393); Protein, Total 7.2 g/dL (6.4-8.2); Sodium Level 140 mmol/L (136-145)
--- NOTE | 2019-02-10 18:51 | EDPHYS ---
Physician Documentation [facility] Name: Eliz Carbone Age: 33 yrs Sex: Female : 1985 Arrival Date: 02/10/2019 Time: 16:19 Bed 25 Private MD: ED Physician Juan Mendiola HPI: 02/10 16:42 This 33 yrs old Black Female presents to ER via Ambulatory with complaints of Abdominal jose Pain, Back Pain. 16:42 This 33 yrs old Black Female presents to ER via Ambulatory with complaints of Abdominal jose Pain, Back Pain. 16:42 The patient presents with pain that is acute, with no known mechanism of injury. The jose symptoms are located in the right mid back. Onset: The symptoms/episode began/occurred 1 day(s) ago. The pain radiates to the right mid back. Associated signs and symptoms: The patient has no apparent associated signs or symptoms. The problem was sustained eating. Modifying factors: The patient symptoms are alleviated by nothing, the patient symptoms are aggravated by food. Severity of symptoms: At their worst the symptoms were mild, moderate, in the emergency department the symptoms are unchanged. The patient has not experienced similar symptoms in the past. 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 - Social history:: Smoking status: Patient uses tobacco products, denies chronic smoking, but will smoke occasionally. - Ebola Screening: : No symptoms or risks identified at this time. - Family history:: not pertinent. ROS: 16:42 Constitutional: Negative for fever, chills, and weight loss, Eyes: Negative for injury, jose pain, redness, and discharge, ENT: Negative for injury, pain, and discharge, Neck: Negative for injury, pain, and swelling, Cardiovascular: Negative for chest pain, palpitations, and edema, Respiratory: Negative for shortness of breath, cough, wheezing, and pleuritic chest pain, Back: Negative for injury and pain, : Negative for injury, bleeding, discharge, and swelling, MS/Extremity: Negative for injury and deformity, Skin: Negative for injury, rash, and discoloration, Neuro: Negative for headache, weakness, numbness, tingling, and seizure, Psych: Negative for depression, anxiety, suicide ideation, homicidal ideation, and hallucinations, Allergy/Immunology: Negative for hives, rash, and allergies, Endocrine: Negative for neck swelling, polydipsia, polyuria, polyphagia, and marked weight changes, Hematologic/Lymphatic: Negative for swollen nodes, abnormal bleeding, and unusual bruising. 16:42 Abdomen/GI: Positive for abdominal pain, of the right upper quadrant. Exam: 16:42 Constitutional: This is a well developed, well nourished patient who is awake, alert, jose and in no acute distress. Head/Face: Normocephalic, atraumatic. Eyes: Pupils equal round and reactive to light, extra-ocular motions intact. Lids and lashes normal. Conjunctiva and sclera are non-icteric and not injected. Cornea within normal limits. Periorbital areas with no swelling, redness, or edema. ENT: Nares patent. No nasal discharge, no septal abnormalities noted. Tympanic membranes are normal and external auditory canals are clear. Oropharynx with no redness, swelling, or masses, exudates, or evidence of obstruction, uvula midline. Mucous membranes moist. Neck: Trachea midline, no thyromegaly or masses palpated, and no cervical lymphadenopathy. Supple, full range of motion without nuchal rigidity, or vertebral point tenderness. No Meningismus. Chest/axilla: Normal chest wall appearance and motion. Nontender with no deformity. No lesions are appreciated. Cardiovascular: Regular rate and rhythm with a normal S1 and S2. No gallops, murmurs, or rubs. Normal PMI, no JVD. No pulse deficits. Respiratory: Lungs have equal breath sounds bilaterally, clear to auscultation and percussion. No rales, rhonchi or wheezes noted. No increased work of breathing, no retractions or nasal flaring. Back: No spinal tenderness. No costovertebral tenderness. Full range of motion. Skin: Warm, dry with normal turgor. Normal color with no rashes, no lesions, and no evidence of cellulitis. MS/ Extremity: Pulses equal, no cyanosis. Neurovascular intact. Full, normal range of motion. Neuro: Awake and alert, GCS 15, oriented to person, place, time, and situation. Cranial nerves II-XII grossly intact. Motor strength 5/5 in all extremities. Sensory grossly intact. Cerebellar exam normal. Normal gait. Psych: Awake, alert, with orientation to person, place and time. Behavior, mood, and affect are within normal limits. 16:42 Abdomen/GI: Bowel sounds: normal, in the right upper quadrant, Palpation: mild abdominal tenderness, Liver: no appreciated palpable abnormalities, Hernia: not appreciated. Vital Signs: 16:24 BP 122 / 82; Pulse 106; Resp 16; Temp 98.4; Pulse Ox 100% on R/A; Weight 90.72 kg; la1 Height 5 ft. 8 in. (172.72 cm); 19:03 BP 116 / 75; Pulse 92; Resp 18; Pulse Ox 97% on R/A; aj1 16:24 Body Mass Index 30.41 (90.72 kg, 172.72 cm) la1 MDM: 16:29 Patient medically screened. [facility] 16:44 Data reviewed: vital signs, nurses notes, lab test result(s), radiologic studies, [facility] ultrasound. 02/10 16:42 Order name: Basic Metabolic Panel; Complete Time: 17:23 [facility] 02/10 16:42 Order name: CBC with Diff; Complete Time: 17:23 [facility] 02/10 16:42 Order name: Creatinine for Radiology; Complete Time: 17:23 [facility] 02/10 16:42 Order name: Hepatic Function; Complete Time: 17:23 [facility] 02/10 16:42 Order name: Lipase; Complete Time: 17:23 [facility] 02/10 16:45 Order name: Urine Culture [facility] 02/10 16:42 Order name: IV Saline Lock; Complete Time: 16:59 [facility] 02/10 16:42 Order name: Labs collected and sent; Complete Time: 16:59 [facility] 02/10 16:42 Order name: US Abdomen Limited [facility] 02/10 16:47 Order name: Urine Dipstick--Ancillary (enter results); Complete Time: 17:23 02/10 16:47 Order name: Urine --Ancillary (enter results); Complete Time: 17:23 02/10 16:42 Order name: Urine Dipstick-Ancillary (obtain specimen); Complete Time: 16:59 [facility] 02/10 16:42 Order name: Urine Test (obtain specimen); Complete Time: 16:59 jose Administered Medications: 17:11 Drug: morphine 2 mg Route: IVP; Site: left antecubital; aj 19:05 Follow up: Response: No adverse reaction; Pain is decreased; RASS: Alert and Calm (0) [facility] 17:11 Drug: Zofran 4 mg Route: IVP; Site: left antecubital; aj1 19:05 Follow up: Response: No adverse reaction [facility] 17:12 Drug: NS 0.9% 1000 ml Route: IV; Rate: 1 bolus; Site: left antecubital; aj1 19:04 Follow up: IV Status: Completed infusion; IV Intake: 1000ml aj Disposition: 02/10/19 18:50 Discharged to Home. Impression: Abdominal tenderness, Cholelithiasis. - Condition is Stable. - Discharge Instructions: Abdominal Pain, Adult, Nausea and Vomiting, Adult, Cholelithiasis, Cholelithiasis, [id number], Abdominal Pain, Adult, [id number]. - Prescriptions for Bentyl 20 mg Oral Tablet - take 1 tablet by ORAL route every 6 hours As needed; 20 tablet. Pepcid 20 mg Oral Tablet - take 1 tablet by ORAL route every 12 hours for 10 days; 20 tablet. Zofran 4 mg Oral Tablet - take 1 tablet by ORAL route every 12 hours As needed; 20 tablet. - Work release form, Medication Reconciliation Form, Thank You Letter, Antibiotic Education, Prescription Opioid Use form. - Follow up: Private Physician; When: 2 - 3 days; Reason: Recheck today's complaints, Continuance of care, Re-evaluation by your physician. Follow up: Rian Lopez; When: 2 - 3 days; Reason: Recheck today's complaints, Re-evaluation by your physician. - Problem is new. - Symptoms have improved. Signatures: Dispatcher [employer] EDUma Jin RN RN aj1 Juan Mendiola MD MD cha Attema, Lee RN RN la1 Corrections: (The following items were deleted from the chart) 19:05 18:50 02/10/2019 18:50 Discharged to Home. Impression: Abdominal tenderness; aj1 Cholelithiasis. Condition is Stable. Discharge Instructions: Abdominal Pain, Adult, Nausea and Vomiting, Adult, Cholelithiasis, Cholelithiasis, [id number], Abdominal Pain, Adult, [id number]. Prescriptions for Bentyl 20 mg Oral Tablet - take 1 tablet by ORAL route every 6 hours As needed; 20 tablet, Pepcid 20 mg Oral Tablet - take 1 tablet by ORAL route every 12 hours for 10 days; 20 tablet, Zofran 4 mg Oral Tablet - take 1 tablet by ORAL route every 12 hours As needed; 20 tablet. and Forms are Medication Reconciliation Form, Thank You Letter, Antibiotic Education, Prescription Opioid Use. Follow up: Private Physician; When: 2 - 3 days; Reason: Recheck today's complaints, Continuance of care, Re-evaluation by your physician. Follow up: Rian Lopez; When: 2 - 3 days; Reason: Recheck today's complaints, Re-evaluation by your physician. Problem is new. Symptoms have improved. jose
--- NOTE | 2019-02-10 18:51 | ER ---
Nurse's Notes [facility] Name: Eliz Carbone Age: 33 yrs Sex: Female : 1985 Arrival Date: 02/10/2019 Time: 16:19 Bed 25 Private MD: Diagnosis: Abdominal tenderness;Cholelithiasis Presentation: 02/10 16:23 Presenting complaint: Patient states: RUQ and back pain since this morning. Transition la1 of care: patient was not received from another setting of care. Onset of symptoms was February 10, 2019. Risk Assessment: Do you want to hurt yourself or someone else? Patient reports no desire to harm self or others. Initial Sepsis Screen: Does the patient meet any 2 criteria? No. Patient's initial sepsis screen is negative. Does the patient have a suspected source of infection? No. Patient's initial sepsis screen is negative. Care prior to arrival: None. 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 - Social history:: Smoking status: Patient uses tobacco products, denies chronic smoking, but will smoke occasionally. - Ebola Screening: : No symptoms or risks identified at this time. - Family history:: not pertinent. Screenin:22 Abuse screen: Denies threats or abuse. Denies injuries from another. Nutritional aj1 screening: No deficits noted. Tuberculosis screening: No symptoms or risk factors identified. 19:04 Fall Risk None identified. aj1 Assessment: 17:22 General: Appears in no apparent distress. uncomfortable, Behavior is calm, cooperative, aj1 appropriate for age. Pain: Complains of pain in right upper quadrant Pain radiates to back. Neuro: Level of Consciousness is awake, alert, obeys commands, Oriented to person, place, time, situation. Cardiovascular: Patient's skin is warm and dry. Respiratory: Airway is patent Respiratory effort is even, unlabored, Respiratory pattern is regular, symmetrical. GI: Abdomen is flat, non-distended, Bowel sounds present X 4 quads. Abd is soft X 4 quads Abdomen is tender to palpation in right upper quadrant. : No signs and/or symptoms were reported regarding the genitourinary system. EENT: No signs and/or symptoms were reported regarding the EENT system. Derm: No signs and/or symptoms reported regarding the dermatologic system. Skin is pink, warm \T\ dry. normal. Musculoskeletal: No signs and/or symptoms reported regarding the musculoskeletal system. Circulation, motion, and sensation intact. 18:25 Reassessment: Patient appears in no apparent distress at this time. No changes from aj1 previously documented assessment. Patient and/or family updated on plan of care and expected duration. Pain level reassessed. Patient is alert, oriented x 3, equal unlabored respirations, skin warm/dry/pink. Vital Signs: 16:24 BP 122 / 82; Pulse 106; Resp 16; Temp 98.4; Pulse Ox 100% on R/A; Weight 90.72 kg; la1 Height 5 ft. 8 in. (172.72 cm); 19:03 BP 116 / 75; Pulse 92; Resp 18; Pulse Ox 97% on R/A; aj1 16:24 Body Mass Index 30.41 (90.72 kg, 172.72 cm) la1 ED Course: 16:19 Patient arrived in ED. mr 16:24 Triage completed. la1 16:25 Arm band placed on left wrist. la1 16:29 Juan Mendiola MD is Attending Physician. jose 16:43 Uma Anderson RN is Primary Nurse. aj1 16:57 Initial lab(s) drawn, by pa, sent to lab. Inserted saline lock: 22 gauge in right jb1 antecubital area, using aseptic technique. Blood collected. 16:58 Urine collected: clean catch specimen, clear, neisha colored. jb1 17:22 Patient has correct armband on for positive identification. Bed in low position. Call aj1 light in reach. 17:22 No provider procedures requiring assistance completed. aj1 18:50 Rian Lopez MD is Referral Physician. jose 18:50 Abdomen Limited In Process Unspecified. EDMS 19:04 IV discontinued, intact, bleeding controlled, No redness/swelling at site. Pressure aj1 dressing applied. Administered Medications: 17:11 Drug: morphine 2 mg Route: IVP; Site: left antecubital; aj1 19:05 Follow up: Response: No adverse reaction; Pain is decreased; RASS: Alert and Calm (0) aj1 17:11 Drug: Zofran 4 mg Route: IVP; Site: left antecubital; aj1 19:05 Follow up: Response: No adverse reaction aj1 17:12 Drug: NS 0.9% 1000 ml Route: IV; Rate: 1 bolus; Site: left antecubital; aj1 19:04 Follow up: IV Status: Completed infusion; IV Intake: 1000ml aj1 Intake: 19:04 IV: 1000ml; Total: 1000ml. aj1 Outcome: 18:50 Discharge ordered by . jose 19:04 Discharged to home ambulatory. aj 19:04 Condition: good 19:04 Discharge instructions given to patient, Instructed on discharge instructions, follow up and referral plans. medication usage, Demonstrated understanding of instructions, follow-up care, medications, Prescriptions given X 3. 19:05 Patient left the ED. aj1 Signatures: Dispatcher [employer] EDMS Tom Sherman jb1 Uma Anderson, RN RN aj1 Juan Mendiola MD MD cha Rivera, Mary mr Attema, Lee RN RN la1
[2019-02-10 19:34] VITALS: TEMP 98.4
[2019-02-10 19:36] VITALS: BP 116/75; O2SAT 97
--- NOTE | 2019-02-10 19:53 | RAD REPORT ---
EXAM DESCRIPTION: US - Abdomen Exam Limited - 02/10/2019 6:50 pm CLINICAL HISTORY: ABD PAIN COMPARISON: Abdomen Exam Limited dated 12/17/2018 FINDINGS: Multiple gallstones are present filling the lumen of the gallbladder. No wall thickening o r pericholecystic fluid identifiable. No common duct stone or biliary tree dilatation identified. IMPRESSION: Multi stone cholelithiasis. No biliary tree abnormality.
== END 2019-02-10 19:05 | disposition home or self-care (01) ==
LOC: ER 16:17
DX: K80.20 Calculus of gallbladder without cholecystitis without obstruction (principal); Z72.0 Tobacco use; Z88.2 Allergy status to sulfonamides
CPT/HCPCS: 36415; 76705; 80048; 80076; 81003; 81025; 83690; 85025; 87086; 87088; 96361; 96374; 96375; 99284; J2270; J2405; J7030

== ENCOUNTER 2019-04-02 02:24 | Inpatient (IN) | payer SELFPAY ==
--- OUTSIDE RECORDS SUMMARY | 2019-04-02 02:27 | XMS REPORT ---
:1985 [facility] Address [address] [place] [address] [address] [place] [address] Care Team Providers Name Role Phone Unavailable [...]
[2019-04-02] MEDS ORDERED: NA CHLORIDE 0.9% 1,000 ML ONE ×2 (02:52→07:32)
[2019-04-02] MEDS ORDERED: KETOROLAC 30 MG/ML INJ ONE ×2 (02:52→14:27)
[2019-04-02] MEDS ORDERED: ONDANSETRON 4 MG/2 ML VIAL ONE (02:58)
[2019-04-02] MEDS ORDERED: MORPHINE 4 MG/ML SYR ONE (03:16)
[2019-04-02 03:23] LABS: Basophils % 0.3 % (0-1.3); Hematocrit 34.4 % (36.0-45.0); Lymphocytes % 28.2 % (15.3-44.8); MPV 8.7 fL (7.6-11.3); RBC Red Blood Cell Count 4.41 M/uL (3.86-4.86)
[2019-04-02 03:32] LABS: ALT/SGPT 18 U/L (12-78); AST/SGOT 12 U/L (15-37); Albumin 3.6 g/dL (3.4-5.0); Alkaline Phosphatase 79 U/L (45-117); BUN Blood Urea Nitrogen 12 mg/dL (7-18); Bicarbonate 21 mmol/L (21-32); Bilirubin Direct < 0.1 mg/dL (0-0.2); Bilirubin Total 0.3 mg/dL (0.2-1.0); Glucose Level 99 mg/dL (74-106); Lipase 122 U/L (73-393); Potassium 3.3 mmol/L (3.5-5.1); Protein, Total 7.4 g/dL (6.4-8.2); Sodium Level 140 mmol/L (136-145)
[2019-04-02 05:29] LABS: Urine Bacteria >50 /HPF (<20)
[2019-04-02 05:30] LABS: Urine Blood NEGATIVE (NEG); Urine Glucose NEGATIVE (NEG); Urine Protein NEGATIVE (NEG); Urine Specific Gravity 1.025 (1.005-1.030)
[2019-04-02 05:30] LABS: Urine Culture Reflex Order REFLEXED; Urine RBC NONE SEEN /HPF (NONE SEEN)
--- NOTE | 2019-04-02 07:05 | EDPHYS ---
Physician Documentation [facility] Name: Eliz Carbone Age: 33 yrs Sex: Female : 1985 Arrival Date: 04/02/2019 Time: 02:25 Bed 7 Private MD: ED Physician Cj Sage HPI: 04/02 02:44 This 33 yrs old Black Female presents to ER via Unassigned with complaints of Abdominal tw4 Pain, Back Pain. 02:45 The patient presents with abdominal pain. Onset: The symptoms/episode began/occurred tw4 today. The symptoms radiate to back. Associated signs and symptoms: none. The symptoms are described as dull. Modifying factors: The symptoms are alleviated by nothing, the symptoms are aggravated by alcohol. Severity of pain: At its worst the pain was severe in the emergency department the pain is unchanged. The patient has not experienced similar symptoms in the past. 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 - Social history:: Smoking status: Patient uses tobacco products, smokes one-half pack cigarettes per day. - Ebola Screening: : No symptoms or risks identified at this time. ROS: 02:45 Constitutional: Negative for fever, chills, and weight loss, Eyes: Negative for injury, tw4 pain, redness, and discharge, Cardiovascular: Negative for chest pain, palpitations, and edema, Respiratory: Negative for shortness of breath, cough, wheezing, and pleuritic chest pain, Back: Negative for injury and pain, MS/Extremity: Negative for injury and deformity, Skin: Negative for injury, rash, and discoloration, Neuro: Negative for headache, weakness, numbness, tingling, and seizure. 02:45 Abdomen/GI: Positive for abdominal pain, Negative for nausea and vomiting, nausea, vomiting, and diarrhea, nausea, vomiting, diarrhea, constipation, anorexia, dysphagia, hematemesis, black/tarry stool, rectal pain, rectal bleeding. Exam: 02:45 Head/Face: Normocephalic, atraumatic. Eyes: Pupils equal round and reactive to light, tw4 extra-ocular motions intact. Lids and lashes normal. Conjunctiva and sclera are non-icteric and not injected. Cornea within normal limits. Periorbital areas with no swelling, redness, or edema. Chest/axilla: Normal chest wall appearance and motion. Nontender with no deformity. No lesions are appreciated. Cardiovascular: Regular rate and rhythm with a normal S1 and S2. No gallops, murmurs, or rubs. Normal PMI, no JVD. No pulse deficits. Respiratory: Lungs have equal breath sounds bilaterally, clear to auscultation and percussion. No rales, rhonchi or wheezes noted. No increased work of breathing, no retractions or nasal flaring. Back: No spinal tenderness. No costovertebral tenderness. Full range of motion. MS/ Extremity: Pulses equal, no cyanosis. Neurovascular intact. Full, normal range of motion. Neuro: Awake and alert, GCS 15, oriented to person, place, time, and situation. Cranial nerves II-XII grossly intact. Motor strength 5/5 in all extremities. Sensory grossly intact. Cerebellar exam normal. Normal gait. 02:45 Constitutional: The patient appears in obvious distress, mildly distressed, uncomfortable. 02:45 Abdomen/GI: Inspection: abdomen appears normal, Bowel sounds: diminished, Palpation: moderate abdominal tenderness, in the right upper quadrant. Vital Signs: 02:45 BP 144 / 110; Pulse 85; Resp 16; Temp 98.0; Pulse Ox 100% on R/A; Weight 90.72 kg; aa1 Height 5 ft. 8 in. (172.72 cm); Pain 10/10; 03:40 BP 123 / 86; Pulse 79; Resp 18; Pulse Ox 100% on R/A; aa1 05:00 BP 117 / 76; Pulse 87; Resp 16; Temp 98.3; Pulse Ox 100% on R/A; Pain 1/10; aa1 06:00 BP 108 / 73; Pulse 74; Resp 16; Pulse Ox 100% on R/A; Pain 0/10; aa1 07:40 BP 128 / 78; Pulse 79; Resp 16; Pulse Ox 100% ; sv 09:49 BP 122 / 77; Pulse 72; Resp 16; Pulse Ox 99% ; sv 02:45 Body Mass Index 30.41 (90.72 kg, 172.72 cm) aa1 MDM: 02:33 Patient medically screened. 04/03 01:07 Differential diagnosis: acute coronary syndrome, cholecystitis, Cholelithiasis, tw4 gastroesophageal reflux disease, Hepatitis. Data reviewed: vital signs, nurses notes. Data reviewed: lab test result(s), CBC, electrolytes, hepatic panel, urinalysis, UPT: negative. Data interpreted: Pulse oximetry: Interpretation: normal. Counseling: I had a detailed discussion with the patient and/or guardian regarding: the historical points, exam findings, and any diagnostic results supporting the discharge/admit diagnosis, radiology results. Medication response: morphine relieved the patient's pain. Symptoms have resolved. Response to treatment: the patient's symptoms have markedly improved after treatment, and as a result, I will discharge patient. Physician consultation: Luigi Maxwell MD was called at 07:00, was contacted at 07:00, regarding admission, to the medical/surgical unit. need to evaluate the patient as soon as possible, and will see patient in inpatient room. Admission orders: after a detailed discussion of the patient's condition and case, the admit orders are written by me. 04/02 02:33 Order name: Basic Metabolic Panel; Complete Time: 04:24 04/02 04:24 Interpretation: Normal except: CL 112; K 3.3. 04/02 02:33 Order name: CBC with Diff; Complete Time: 04:24 04/02 04:24 Interpretation: Normal except: WBC 14.4; HCT 34.4; HGB 11.2; MCV 78.0; MCH 25.3; RDW tw4 16.4. 04/02 02:33 Order name: Hepatic Function; Complete Time: 04:24 04/02 04:24 Interpretation: Normal except: AST 12; GLOB 3.8; A/G 0.9. 04/02 02:33 Order name: Lipase; Complete Time: 04:24 04/02 04:25 Interpretation: Within normal limits: LIP 122. 04/02 04:28 Order name: Urine Microscopic Only; Complete Time: 06:15 04/02 06:17 Interpretation: Normal except: SQEPI 10-20; UWBC 10-20; UBACT >50. [facility] 04/02 04:30 Order name: Urine Dipstick--Ancillary (enter results); Complete Time: 06:15 4 04/02 06:17 Interpretation: Normal except: UESTR 1+. tw4 04/02 04:30 Order name: Urine --Ancillary (enter results); Complete Time: 06:15 [facility] 04/02 06:17 Interpretation: Within normal limits: URINE PREG NEG. tw 04/02 05:31 Order name: Urine Culture [facility] 04/02 07:07 Order name: Basic Metabolic Panel [facility] 04/02 07:07 Order name: Basic Metabolic Panel [facility] 04/02 07:07 Order name: CBC with Automated Diff [facility] 04/02 07:07 Order name: CBC with Automated Diff [facility] 04/02 07:07 Order name: Lipase [facility] 04/02 02:33 Order name: IV Saline Lock; Complete Time: 02:52 [facility] 04/02 02:33 Order name: Labs collected and sent; Complete Time: 02:52 [facility] 04/02 02:40 Order name: CT Abd/Pelvis - IV Contrast Only tw 04/02 06:18 Order name: US Abdomen Limited tw 04/02 07:07 Order name: NPO [facility] 04/02 07:07 Order name: Lipase [facility] 04/02 07:07 Order name: Liver (Hepatic) Function [facility] 04/02 07:07 Order name: Liver (Hepatic) Function [facility] 04/02 02:33 Order name: Urine Dipstick-Ancillary (obtain specimen); Complete Time: 04:30 [facility] 04/02 02:33 Order name: Urine Test (obtain specimen); Complete Time: 04:30 [facility] 04/02 07:07 Order name: NPO; Complete Time: 07:07 [facility] Administered Medications: 04/02 02:53 Drug: NS 0.9% 1000 ml Route: IV; Rate: 1000 ml; Site: left forearm; aa1 03:50 Follow up: IV Status: Completed infusion; IV Intake: 1000ml aa1 02:53 Drug: TORadol 30 mg Route: IVP; Site: left forearm; aa1 03:10 Follow up: Response: No adverse reaction; Pain is unchanged, physician notified aa1 02:56 Drug: Zofran 4 mg Route: IVP; Site: left forearm; aa1 03:56 Follow up: Response: No adverse reaction; Nausea is decreased aa1 03:12 Drug: morphine 4 mg Route: IVP; Site: left forearm; aa1 04:12 Follow up: Response: No adverse reaction; Pain is decreased; RASS: Alert and Calm (0) aa1 07:07 Drug: Potassium Effervescent Tablet 50 mEq Route: PO; sv 07:40 Follow up: Response: No adverse reaction sv 07:40 Drug: NS 0.9% 1000 ml Route: IV; Rate: 125 ml/hr; Site: left forearm; sv 11:08 Follow up: Response: No adverse reaction; IV Status: Infusion continued upon admission sv 08:21 CANCELLED (Duplicate Order): morphine 2 mg IVP once; (PAIN>8) RASS on ADMN: Combtv4, sv Very Agttd3, Agttd2, Rstlss1, AlertClm0, Drwsy-1, LtSdtn-2, ModSdtn-3, DpSdtn-4, UnArsble-5 x2 08:22 Drug: morphine 2 mg Route: IVP; Site: left forearm; sv 08:45 Follow up: Response: No adverse reaction; RASS: Alert and Calm (0) sv Disposition: 04/02/19 07:03 Hospitalization ordered by Luigi Maxwell for Inpatient Admission. Preliminary diagnosis is Cholecystitis, unspecified. - Bed requested for Telemetry/MedSurg (Inpatient). - Status is Inpatient Admission. sv - Condition is Stable. - Problem is an ongoing problem. - Symptoms have worsened. UTI on Admission? No Signatures: Dispatcher [employer] EDMA Juliana Leon RN RN Alicia Giraldo RN RN aa1 Cj Sage MD MD tw4 Corrections: (The following items were deleted from the chart) 03:31 02:34 Creatinine for Radiology+C.LAB.BRZ ordered. EDMA EDMA 08:21 08:17 morphine 2 mg IVP once; (PAIN>8) RASS on ADMN: Combtv4, Very Agttd3, Agttd2, sv Rstlss1, AlertClm0, Drwsy-1, LtSdtn-2, ModSdtn-3, DpSdtn-4, UnArsble-5 x2 ordered. sv 09:56 07:03 Hospitalization Ordered by Luigi Maxwell MD for Inpatient Admission. Preliminary sv diagnosis is Cholecystitis, unspecified. Bed requested for Telemetry/MedSurg (Inpatient). Status is Inpatient Admission. Condition is Stable. Problem is an ongoing problem. Symptoms have worsened. UTI on Admission? No. tw4 11:09 09:56 04/02/2019 07:03 Hospitalization Ordered by Luigi Maxwell MD for Inpatient sv Admission. Preliminary diagnosis is Cholecystitis, unspecified. Bed requested for Telemetry/MedSurg (Inpatient). Status is Inpatient Admission. Condition is Stable. Problem is an ongoing problem. Symptoms have worsened. UTI on Admission? No. sv
--- NOTE | 2019-04-02 07:05 | ER ---
Nurse's Notes [facility] Name: Eliz Carbone Age: 33 yrs Sex: Female : 1985 Arrival Date: 04/02/2019 Time: 02:25 Bed 7 Private MD: Diagnosis: Cholecystitis, unspecified Presentation: 04/02 02:43 Presenting complaint: Patient states: she woke up about 0145 this am with sharp abd aa1 pain that radiates to her back /. Denies N/V/D. Reports pain is generalized but is worse in RUQ and epigastric region. Transition of care: patient was not received from another setting of care. Onset of symptoms was April 02, 2019 at 01:45. Risk Assessment: Do you want to hurt yourself or someone else? Patient reports no desire to harm self or others. Initial Sepsis Screen: Does the patient meet any 2 criteria? No. Patient's initial sepsis screen is negative. Does the patient have a suspected source of infection? Yes: Acute abdominal pain. Care prior to arrival: None. 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 - Social history:: Smoking status: Patient uses tobacco products, smokes one-half pack cigarettes per day. - Ebola Screening: : No symptoms or risks identified at this time. Screenin:40 Abuse screen: Denies threats or abuse. Denies injuries from another. Nutritional aa1 screening: No deficits noted. Tuberculosis screening: No symptoms or risk factors identified. Fall Risk None identified. Assessment: 02:40 General: Appears in no apparent distress. uncomfortable, Behavior is cooperative, aa1 appropriate for age, restless. Pain: Complains of pain in abdomen Pain radiates to back Pain currently is 10 out of 10 on a pain scale. Quality of pain is described as sharp, Pain began 1 hour ago. Is continuous. Neuro: Level of Consciousness is awake, alert, obeys commands, Oriented to person, place, time, situation, Moves all extremities. Full function Gait is steady. Respiratory: Airway is patent Respiratory effort is even, unlabored, Respiratory pattern is regular, symmetrical. GI: Abdomen is non-distended, Abd is soft X 4 quads Abdomen is tender to palpation in epigastric area and right upper quadrant Reports lower abdominal pain, upper abdominal pain, bloating, Patient currently denies constipation, diarrhea, nausea, vomiting. : No signs and/or symptoms were reported regarding the genitourinary system. EENT: No signs and/or symptoms were reported regarding the EENT system. Derm: Skin is intact, is healthy with good turgor, Skin is pink, warm \T\ dry. Musculoskeletal: Capillary refill < 3 seconds. 03:40 Reassessment: Patient appears in no apparent distress at this time. Patient and/or aa1 family updated on plan of care and expected duration. Pain level reassessed. Patient is alert, oriented x 3, equal unlabored respirations, skin warm/dry/pink. Awaiting lab results and CT scan. 04:37 Reassessment: Patient appears in no apparent distress at this time. Patient and/or aa1 family updated on plan of care and expected duration. Pain level reassessed. Patient is alert, oriented x 3, equal unlabored respirations, skin warm/dry/pink. Pt taken to CT at this time. 05:17 Reassessment: Patient appears in no apparent distress at this time. Patient and/or aa1 family updated on plan of care and expected duration. Pain level reassessed. Patient is alert, oriented x 3, equal unlabored respirations, skin warm/dry/pink. Awaiting CT results. 06:12 Reassessment: Patient appears in no apparent distress at this time. Patient and/or aa1 family updated on plan of care and expected duration. Pain level reassessed. Patient is alert, oriented x 3, equal unlabored respirations, skin warm/dry/pink. Awaiting CT results Patient denies pain at this time. 07:07 Reassessment: Patient appears in no apparent distress at this time. No changes from sv previously documented assessment. Patient and/or family updated on plan of care and expected duration. Pain level reassessed. Patient is alert, oriented x 3, equal unlabored respirations, skin warm/dry/pink. 09:00 Reassessment: Patient appears in no apparent distress at this time. No changes from sv previously documented assessment. Patient and/or family updated on plan of care and expected duration. Pain level reassessed. Patient is alert, oriented x 3, equal unlabored respirations, skin warm/dry/pink. 09:58 Reassessment: Attempted to give report, nurse to call back. sv 10:48 Reassessment: Attempted to call report, nurse to call back. sv 11:03 Reassessment: SHARRI Dunham took report for pt admitted. ss 11:08 Reassessment: Patient appears in no apparent distress at this time. Patient and/or sv family updated on plan of care and expected duration. Pain level reassessed. Patient is alert, oriented x 3, equal unlabored respirations, skin warm/dry/pink. Vital Signs: 02:45 BP 144 / 110; Pulse 85; Resp 16; Temp 98.0; Pulse Ox 100% on R/A; Weight 90.72 kg; aa1 Height 5 ft. 8 in. (172.72 cm); Pain 10/10; 03:40 BP 123 / 86; Pulse 79; Resp 18; Pulse Ox 100% on R/A; aa1 05:00 BP 117 / 76; Pulse 87; Resp 16; Temp 98.3; Pulse Ox 100% on R/A; Pain 1/10; aa1 06:00 BP 108 / 73; Pulse 74; Resp 16; Pulse Ox 100% on R/A; Pain 0/10; aa1 07:40 BP 128 / 78; Pulse 79; Resp 16; Pulse Ox 100% ; sv 09:49 BP 122 / 77; Pulse 72; Resp 16; Pulse Ox 99% ; sv 02:45 Body Mass Index 30.41 (90.72 kg, 172.72 cm) aa1 ED Course: 02:25 Patient arrived in ED. ds1 02:32 Cj Sage MD is Attending Physician. tw4 02:40 Patient has correct armband on for positive identification. Placed in gown. Bed in low aa1 position. Call light in reach. Pulse ox on. NIBP on. 02:43 Alicia Giraldo RN is Primary Nurse. aa1 02:44 Triage completed. aa1 02:45 Arm band placed on right wrist. aa1 02:45 Inserted saline lock: 22 gauge in left forearm, using aseptic technique. Blood ds4 collected. 02:54 Lipase Sent. ds4 02:54 Hepatic Function Sent. ds4 02:54 CBC with Diff Sent. ds4 02:54 Basic Metabolic Panel Sent. ds4 03:00 Radiology exam delayed due to lab results not completed at this time. (HCG) eh (BUN/Creatinine). 03:42 Radiology exam delayed due to test not completed at this time. eh 04:23 Urine collected: clean catch specimen. aa1 04:31 Urine Dipstick--Ancillary (enter results) Sent. ds4 04:31 Urine Microscopic Only Sent. ds4 05:02 CT Abd/Pelvis - IV Contrast Only In Process Unspecified. EDMS 05:20 Urine Microscopic Only Sent. ds4 05:20 Urine Dipstick--Ancillary (enter results) Sent. ds4 05:20 Urine --Ancillary (enter results) Sent. ds4 06:59 US Abdomen Limited In Process Unspecified. EDMS 07:03 Luigi Maxwell MD is Hospitalizing Provider. tw4 07:08 Primary Nurse role handed off by Alicia Giraldo RN sv 07:08 Juliana Leon, SHARRI is Primary Nurse. sv 08:14 Awaiting bed assignment. sv 09:49 Awaiting bed assignment. sv 09:56 No provider procedures requiring assistance completed. Patient admitted, IV remains in sv place. intact. Administered Medications: 02:53 Drug: NS 0.9% 1000 ml Route: IV; Rate: 1000 ml; Site: left forearm; aa1 03:50 Follow up: IV Status: Completed infusion; IV Intake: 1000ml aa1 02:53 Drug: TORadol 30 mg Route: IVP; Site: left forearm; aa1 03:10 Follow up: Response: No adverse reaction; Pain is unchanged, physician notified aa1 02:56 Drug: Zofran 4 mg Route: IVP; Site: left forearm; aa1 03:56 Follow up: Response: No adverse reaction; Nausea is decreased aa1 03:12 Drug: morphine 4 mg Route: IVP; Site: left forearm; aa1 04:12 Follow up: Response: No adverse reaction; Pain is decreased; RASS: Alert and Calm (0) aa1 07:07 Drug: Potassium Effervescent Tablet 50 mEq Route: PO; sv 07:40 Follow up: Response: No adverse reaction sv 07:40 Drug: NS 0.9% 1000 ml Route: IV; Rate: 125 ml/hr; Site: left forearm; sv 11:08 Follow up: Response: No adverse reaction; IV Status: Infusion continued upon admission sv 08:21 CANCELLED (Duplicate Order): morphine 2 mg IVP once; (PAIN>8) RASS on ADMN: Combtv4, sv Very Agttd3, Agttd2, Rstlss1, AlertClm0, Drwsy-1, LtSdtn-2, ModSdtn-3, DpSdtn-4, UnArsble-5 x2 08:22 Drug: morphine 2 mg Route: IVP; Site: left forearm; sv 08:45 Follow up: Response: No adverse reaction; RASS: Alert and Calm (0) sv Intake: 03:50 IV: 1000ml; Total: 1000ml. aa1 Outcome: 07:03 Decision to Hospitalize by Provider. tw4 11:08 Admitted to Med/surg accompanied by tech, via wheelchair, with chart, Report called to Charla RN by Coby HARRELL 11:08 Condition: stable 11:08 Instructed on the need for admit. 11:09 Patient left the ED. Signatures: Dispatcher [employer] Juliana Cali, RN SHARRI Alicia Giraldo RN RN aa1 [place] Lara Demi ds1 Coby Garza RN RN ss Swanson, Donovan ds4 Cj Sage MD MD tw4 Corrections: (The following items were deleted from the chart) 03:31 02:54 Creatinine for Radiology+C.LAB.BRZ drawn and sent. 4 EDIL
[2019-04-02] MEDS ORDERED: MORPHINE 2 MG/ML SYR IV PRN (08:17)
--- NOTE | 2019-04-02 08:26 | RAD REPORT ---
EXAM DESCRIPTION: US - Abdomen Exam Limited - 04/02/2019 6:59 am CLINICAL HISTORY: examine GB;Abd pain COMPARISON: Abdomen Exam Limited dated 02/10/2019 FINDINGS: The gallbladder demonstrates shadowing gallstone. No pericholecystic fluid or gallbladder wall thickening. The common bile duct is normal measuring 4-5 mm. The liver demonstrates no findings of intrahepatic biliary dilatation. IMPRESSION: Cholelithiasis.
--- NOTE | 2019-04-02 12:01 | RAD REPORT ---
EXAM DESCRIPTION: CT Abdomen and Pelvis With Intravenous Contrast CLINICAL HISTORY: The patient is 33 years old and is Female; ABD PAIN TECHNIQUE: Axial computed tomography images of the abdomen and pelvis with intravenous contrast. S agittal and coronal reformatted images were created and reviewed. This CT exam was performed using one or more of the following dose reduction techniques: automated exposure control, adjustment of t he mA and/or kV according to patient size, and/or use of iterative reconstruction technique. COMPARISON: CT of the abdomen and pelvis December 02, 2018. FINDINGS: LUNG BASES: Unremarkable. No mass. No consolidation. ABDOMEN: LIVER: Unremarkable. No mass. GALLBLADDER AND BILE DUCTS: Large gallstone is present within the neck of the gallbladder. The g allbladder is moderately distended. There is no ductal dilatation. PANCREAS: No ductal dilation. No mass. SPLEEN: Unremarkable. ADRENALS: Unremarkable. No mass. KIDNEYS AND URETERS: Unremarkable. The kidneys enhance symmetrically. No obstructing renal or ur eteral calculus is seen. No hydronephrosis or hydroureter. No perinephric fluid or stranding. STOMACH AND BOWEL: The stomach is minimally distended with food contents. The small bowel is nor mal in caliber. A moderate amount of stool is present throughout the colon. There is no mucosal thick ening or evidence of bowel obstruction. PELVIS: APPENDIX: The appendix is normal in caliber without surrounding inflammation. BLADDER: The bladder is not well distended. REPRODUCTIVE: A 1.7 cm left ovarian cyst is present. No follow-up imaging is recommended. The ri ght ovary is unremarkable. The uterus has a slightly lobular contour suggesting fibroids. ABDOMEN and PELVIS: INTRAPERITONEAL SPACE: Trace free fluid is present within the pelvis which is likely physiologic . No free air. BONES/JOINTS: No acute fracture. SOFT TISSUES: The soft tissues are normal. VASCULATURE: Unremarkable. No abdominal aortic aneurysm. LYMPH NODES: Unremarkable. No enlarged lymph nodes. IMPRESSION: Cholelithiasis with distended gallbladder. If there is clinical concern for acute gallbl adder pathology, findings could be further evaluated with ultrasound or HIDA scan. Electronically signed by: Susan Beckman MD 04/02/2019 5:20 AM HYDRANT SETTER Due to temporary technical issues with the PACS/Fluency reporting system, reports are being signed by the in house radiologist as a courtesy to ensure prompt reporting. The interpreting radiologist is f ully responsible for the content of the report.
[2019-04-02] MEDS: D5 0.45 NS 1,000 ML IV SCH ×3 (12:11→23:32)
[2019-04-02] MEDS ORDERED: Ringers Lactate 1,000 ML IV ONE ×2 (12:58→14:26)
[2019-04-02] MEDS ORDERED: propofoL 200 MG/20 ML VIAL IV ONE (13:13)
[2019-04-02] MEDS ORDERED: FENTANYL CITR 100 MCG/2 ML ONE ×2 (13:13→14:14)
[2019-04-02] MEDS ORDERED: GLYCOPYRROLATE 0.2 MG/ML SYR ONE (13:14)
[2019-04-02] MEDS ORDERED: ROCURONIUM 50 MG/5 ML VIAL IV ONE (13:14)
[2019-04-02] MEDS ORDERED: LIDOCAINE 2% MPF 5 ML VIAL ONE (13:14)
[2019-04-02] MEDS ORDERED: MIDAZOLAM HCL 2 MG/2 ML INJ ONE ×2 (13:14→15:12)
[2019-04-02] MEDS ORDERED: dexAMETHasone 10 MG/ML VIAL ONE (13:14)
[2019-04-02] MEDS ORDERED: CEFOXITIN/SWI 1gm 1 GM/10 ML SYR ONE (13:18)
--- NOTE | 2019-04-02 13:19 | P.HP ---
Date of Service: 04/02/19 PC: This 33-year-old female presents emergency room with severe right upper quadrant abdominal pain for diagnosis and treatment. HPC: Patient had been experiencing some abdominal pain off and off for the last few months. However last night had severe pain located in the upper portion of her abdomen radiating into her back. Describes it as nice taking her all over. Was unrelenting and she had to come to the emergency room PMH: Negative ( 5 para 4) PSHx: 3 prior C-sections SOC: Allergic to sulfa SYS REVIEW: No cough, wheeze, shortness of breath. No chest pain or palpitations. No urinary complaints. Very active physically. O/E awake alert comfortable at the moment HEENT: Not jaundice Chest: Chest movement equal bilaterally ABD: Tender in the right upper quadrant LOCO: Intact DATA: Elevated white cell count, CT scan and ultrasound documents stones IMPRESSION: Cholecystitis with cholelithiasis, biliary colic PLAN: I will take her the operating room for laparoscopic possible open cholecystectomy. We will also do a cholangiogram. The risks of this procedure have been discussed. The possibility of bleeding, infection, injury to bile ducts blood vessels and intestines has been described. The possible need for an open and/or further surgeries and procedures was discussed. She understands and wants us to proceed.
[2019-04-02 13:24] VITALS: BMI 30.4
--- NOTE | 2019-04-02 14:46 | P.OP ---
Preoperative diagnosis: Cholecystitis with cholelithiasis Postoperative diagnosis: The same Primary procedure: Laparoscopic cholecystectomy Secondary procedure: Cholangiogram Anesthesia: General Estimated blood loss: Less than 10 cc Specimen: 1 gallbladder and contents Operative Technique: The patient was brought to the operating room placed supine on the table. After the induction of adequate general endotracheal anesthesia, the area of the abdomen is prepped with a DuraPrep solution, and draped in the usual aseptic manner. A subumbilical incision was made. This brought down through the skin and subcutaneous tissue. The Visiport was used to enter the peritoneal cavity and created pneumoperitoneum to approximately 12 mm of mercury. Under direct vision a 5 mm trocar was placed in the upper midline, and 2 other 5 mm trocars on the right lateral side. The patient's head was then elevated and rolled towards the punch operator's side. We could see a distended gallbladder. A stone was visible down by Angelo's pouch. A grasper was placed on the fundus of the gallbladder. Another 1 was placed down by Angelo's pouch. Applying lateral traction we were able to dissect and expose the cystic duct and artery. The artery was dealt with 1st. It was clipped and divided in the usual manner. A clip was then placed between the gallbladder and the cystic duct. An opening was made into the cystic duct. We attempted then to pass the cholangiocath into the cystic duct. After injecting contrast, we could see good flow of contrast into the duodenum. No filling defects were noted. Clips were now placed on the distal portion of the cystic duct. The cystic duct was then divided. The gallbladder was now dissected free from the liver bed, placed into an Endo-Catch, and brought out through the umbilical trocar site. The gallbladder fossa was inspected to ensure adequate hemostasis. It was irrigated with a saline solution and the irrigant aspirated from the peritoneal cavity. 0.25% Marcaine was aerosolized into the right upper quadrant and the gallbladder fossa. The umbilical trocar site was now approximated with an Endo Close and an absorbable sutures. The pneumoperitoneum was then collapsed, the suture tied, and gretta applied to the skin. A further 0.25% Marcaine was injected around are incision sites. At the end of the procedure the patient was in a stable condition when sent to the recovery room. Needle sponge instrument count were correct. 1 specimen was sent for histopathology. Complications: None Transferred to: Recovery Room Condition: Good
[2019-04-02] MEDS ORDERED: ONDANSETRON 4 MG/2 ML VIAL IV PRN (14:49)
[2019-04-02] MEDS ORDERED: MORPHINE 4 MG/ML SYR IV PRN (14:49)
[2019-04-02 14:59] VITALS: O2SAT 100
[2019-04-02] MEDS ORDERED: PROMETHAZINE INJ 25 MG/ML AMP ONE (15:19)
[2019-04-02] MEDS: HYDROMORPHONE HCL 1 MG/ML INJ ONE ×2 (15:23→15:33)
--- NOTE | 2019-04-02 15:40 | RAD REPORT ---
EXAM DESCRIPTION: RAD - Cholangiogram Oper-Xray Or - 04/02/2019 3:09 pm FINDINGS: There were 3 portable C-arm views obtained during fluoroscopic assisted intraoperative cho langiogram. No suspicious or unexpected finding on the images. Fluoro time was 0.1 minutes.
[2019-04-02] MEDS: HYDROCODONE/APAP 7.5/325 MG TAB PO PRN (17:15)
[2019-04-03] MEDS: HYDROCODONE/APAP 7.5/325 MG TAB PO PRN ×2 (03:56→09:05)
[2019-04-03] MEDS: D5 0.45 NS 1,000 ML IV SCH ×2 (08:00→09:06)
[2019-04-03 13:30] VITALS: BP 123/73; TEMP 98.7
== END 2019-04-03 14:06 | disposition home or self-care (01) | DRG 419 ==
LOC: ER 02:24 → ERHOLD 07:05 → 2ND 09:59
PROVIDERS: ADMIT Surgery; ATTEND Surgery
PROC: BF03YZZ Plain Radiography of Gallbladder and Bile Ducts using Other Contrast (ICD-10-PCS; 2019-04-02)
PROC: 0FT44ZZ Resection of Gallbladder, Percutaneous Endoscopic Approach (ICD-10-PCS; principal; 2019-04-02 12:00)
DX: K80.00 Calculus of gallbladder with acute cholecystitis without obstruction (principal)
CPT/HCPCS: 36415; 74177; 74300; 76705; 80048; 80076; 81003; 81015; 81025; 83690; 85025; 87086; 87088; 88304; 96361; 96374; 96375; 99285; J1100; J1170; J2250; J2270; J2405; J2550; J2704; J3010; J7030; J7120; J7799; Q9967

== ENCOUNTER 2019-04-05 09:34 | Emergency (ER) | payer SELFPAY ==
--- OUTSIDE RECORDS SUMMARY | 2019-04-05 09:36 | XMS REPORT ---
:1985 [facility] Address [address] [place] [address] [address] [place] [address] Care Team Providers Name Role Phone Unavailable [...]
--- NOTE | 2019-04-05 10:37 | ER ---
Nurse's Notes [facility] Name: Eliz Carbone Age: 33 yrs Sex: Female : 1985 Arrival Date: 04/05/2019 Time: 09:38 Bed 12 Private MD: Diagnosis: Postsurgical pain Presentation: 04/05 10:10 Presenting complaint: Patient states: has cholecystectomy on , d/c Saturday and iw still having a lot of pain and is supposed to go to work tomorrow, states there is no way she can work tomorrow , states she has enough pain medicine but just needs more time off. Transition of care: patient was not received from another setting of care. Onset of symptoms was April 05, 2019. Risk Assessment: Do you want to hurt yourself or someone else? Patient reports no desire to harm self or others. Initial Sepsis Screen: Does the patient meet any 2 criteria? No. Patient's initial sepsis screen is negative. Does the patient have a suspected source of infection? No. Patient's initial sepsis screen is negative. Care prior to arrival: None. 10:10 Method Of Arrival: Ambulatory iw 10:10 Acuity: ESTHELA 4 iw Triage Assessment: 10:40 General: Appears in no apparent distress. Behavior is calm. 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 - Social history:: Smoking status: Patient reports the use of cigarette tobacco products, smokes one-half pack cigarettes per day. - Ebola Screening: : Patient negative for fever greater than or equal to 101.5 degrees Fahrenheit, and additional compatible Ebola Virus Disease symptoms Patient denies exposure to infectious person Patient denies travel to an Ebola-affected area in the 21 days before illness onset No symptoms or risks identified at this time. Screenin:45 Abuse screen: Denies threats or abuse. Denies injuries from another. Nutritional iw screening: No deficits noted. Tuberculosis screening: No symptoms or risk factors identified. Fall Risk None identified. Assessment: 10:20 General: Appears in no apparent distress. comfortable, Behavior is calm, cooperative. iw Pain: Complains of pain in abdomen. Neuro: Level of Consciousness is awake, alert, obeys commands, Oriented to person, place, time, situation, Moves all extremities. Cardiovascular: Patient's skin is warm and dry. Respiratory: Respiratory effort is even, unlabored, Respiratory pattern is regular, symmetrical. GI: Abdomen is non-distended. Derm: Skin is intact, is healthy with good turgor. Musculoskeletal: Range of motion: intact in all extremities. Vital Signs: 10:13 BP 121 / 94; Pulse 95; Resp 16; Temp 97.9; Pulse Ox 100% on R/A; Weight 90.72 kg; iw Height 5 ft. 8 in. (172.72 cm); Pain 8/10; 10:13 Body Mass Index 30.41 (90.72 kg, 172.72 cm) iw ED Course: 09:38 Patient arrived in ED. mr 10:12 Triage completed. iw 10:19 Meryl Proctor RN is Primary Nurse. iw 10:20 Fan Jang NP is PHCP. pm1 10:20 Chad Anthony MD is Attending Physician. pm1 10:20 Arm band placed on. iw 10:20 Patient has correct armband on for positive identification. iw 10:48 No provider procedures requiring assistance completed. Patient did not have IV access iw during this emergency room visit. Administered Medications: No medications were administered Outcome: 10:36 Discharge ordered by MD. pm1 10:48 Discharged to home ambulatory. iw 10:48 Condition: good 10:48 Discharge instructions given to patient, Instructed on discharge instructions, follow up and referral plans. Demonstrated understanding of instructions, follow-up care. 10:49 Patient left the ED. iw Signatures: Rajani Wyatt mr Meryl Proctor RN RN iw Fan Jang NP MACHINE STAMPER pm1
--- NOTE | 2019-04-05 10:37 | EDPHYS ---
Physician Documentation [facility] Name: Eliz Carbone Age: 33 yrs Sex: Female : 1985 Arrival Date: 04/05/2019 Time: 09:38 Bed 12 Private MD: ED Physician Chad Anthony HPI: 04/05 10:32 This 33 yrs old Black Female presents to ER via Ambulatory with complaints of Post pm1 surgical pain. 10:32 The patient presents with post surgical pain to abdomen. pm1 10:32 Associated signs and symptoms: none. Pertinent negatives: nausea, vomiting, and pm1 diarrhea, chest pain, constipation, dysuria, fever, headache, shortness of breath. Patient had a cholecystectomy on and was discharged home on Saturday. Patient has Madison 7.5 mg at home that she takes 1/2 as needed. She does not need any more pain medications but she wants a few more days off. She does not have any abdominal pain with rest. She only has pain if she tries to do something physical that causes straining. 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 She is presenting to the ER for a work release for additional days off. She initially requested a return to work tomorrow from Dr. Maxwell at discharge. 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 - Social history:: Smoking status: Patient reports the use of cigarette tobacco products, smokes one-half pack cigarettes per day. - Ebola Screening: : Patient negative for fever greater than or equal to 101.5 degrees Fahrenheit, and additional compatible Ebola Virus Disease symptoms Patient denies exposure to infectious person Patient denies travel to an Ebola-affected area in the 21 days before illness onset No symptoms or risks identified at this time. ROS: 10:32 Constitutional: Negative for fever, chills, and weight loss, Eyes: Negative for injury, pm1 pain, redness, and discharge, ENT: Negative for injury, pain, and discharge, Neck: Negative for injury, pain, and swelling, Cardiovascular: Negative for chest pain, palpitations, and edema, Respiratory: Negative for shortness of breath, cough, wheezing, and pleuritic chest pain. 10:32 Back: Negative for injury and pain, : Negative for injury, bleeding, discharge, and swelling, MS/Extremity: Negative for injury and deformity, Skin: Negative for injury, rash, and discoloration. 10:32 Neuro: Negative for headache, weakness, numbness, tingling, and seizure. 10:32 Abdomen/GI: Positive for abdominal pain, with straining and lifting, Negative for nausea, vomiting, and diarrhea, constipation. Exam: 10:32 Constitutional: This is a well developed, well nourished patient who is awake, alert, pm1 and in no acute distress. Head/Face: Normocephalic, atraumatic. Neck: Trachea midline, no thyromegaly or masses palpated, and no cervical lymphadenopathy. Supple, full range of motion without nuchal rigidity, or vertebral point tenderness. No Meningismus. Chest/axilla: Normal chest wall appearance and motion. Nontender with no deformity. No lesions are appreciated. Cardiovascular: Regular rate and rhythm with a normal S1 and S2. No gallops, murmurs, or rubs. No pulse deficits. Respiratory: Lungs have equal breath sounds bilaterally, clear to auscultation and percussion. No rales, rhonchi or wheezes noted. No increased work of breathing, no retractions or nasal flaring. Abdomen/GI: Soft, non-tender, with normal bowel sounds. No distension or tympany. No guarding or rebound. No evidence of tenderness throughout. Back: No spinal tenderness. No costovertebral tenderness. Full range of motion. Skin: Warm, dry with normal turgor. Normal color with no rashes, no lesions, and no evidence of cellulitis. MS/ Extremity: Pulses equal, no cyanosis. Neurovascular intact. Full, normal range of motion. 10:32 Neuro: Orientation: is normal, Motor: is normal, moves all fours. Vital Signs: 10:13 BP 121 / 94; Pulse 95; Resp 16; Temp 97.9; Pulse Ox 100% on R/A; Weight 90.72 kg; iw Height 5 ft. 8 in. (172.72 cm); Pain 10/25; 10:13 Body Mass Index 30.41 (90.72 kg, 172.72 cm) iw MDM: 10:20 Patient medically screened. pm1 10:32 Data reviewed: vital signs. Data interpreted: Pulse oximetry: on room air is 100 %. pm1 Interpretation: normal. Counseling: I had a detailed discussion with the patient and/or guardian regarding: the historical points, exam findings, and any diagnostic results supporting the discharge/admit diagnosis, the need for outpatient follow up, To schedule and keep appointment with Dr. Maxwell on as discussed between you and him at discharge, to return to the emergency department if symptoms worsen or persist or if there are any questions or concerns that arise at home. Administered Medications: No medications were administered Disposition: 15:22 Co-signature as Attending Physician, Chad Anthony MD. ma2 Disposition: 04/05/19 10:36 Discharged to Home. Impression: Postsurgical pain. - Condition is Stable. - Discharge Instructions: Cholecystostomy, Care After. - Work release form, Medication Reconciliation Form, Thank You Letter, Antibiotic Education, Prescription Opioid Use form. - Follow up: Emergency Department; When: As needed; Reason: Worsening of condition. Follow up: Private Physician; When: 2 - 3 days; Reason: Recheck today's complaints, Continuance of care, Re-evaluation by your physician. - Problem is new. - Symptoms have improved. Signatures: Meryl Proctor RN RN Fan Jang, NOA CARTON WAXING MACHINE OPERATOR pm1 Chad Anthony MD MD nm2 Corrections: (The following items were deleted from the chart) 10:49 10:36 04/05/2019 10:36 Discharged to Home. Impression: Postsurgical pain. Condition is iw Stable. Forms are Medication Reconciliation Form, Thank You Letter, Antibiotic Education, Prescription Opioid Use. Follow up: Emergency Department; When: As needed; Reason: Worsening of condition. Follow up: Private Physician; When: 2 - 3 days; Reason: Recheck today's complaints, Continuance of care, Re-evaluation by your physician. Problem is new. Symptoms have improved. pm1
[2019-04-05 12:02] VITALS: BP 121/94; TEMP 97.9; O2SAT 100
== END 2019-04-05 10:49 | disposition home or self-care (01) ==
LOC: ER 09:34
DX: R10.9 Unspecified abdominal pain (principal); G89.18 Other acute postprocedural pain
CPT/HCPCS: 99281

== ENCOUNTER 2019-05-13 14:57 | Emergency (ER) | payer SELFPAY ==
--- OUTSIDE RECORDS SUMMARY | 2019-05-13 15:00 | XMS REPORT ---
:1985 [facility] Address [address] [place] [address] [address] [place] [address] Care Team Providers Name Role Phone Unavailable [...]
[2019-05-13 16:39] LABS: Urine Bacteria 20-50 /HPF (<20)
--- NOTE | 2019-05-13 16:42 | ER ---
Nurse's Notes [facility] Name: Eliz Carbone Age: 33 yrs Sex: Female : 1985 Arrival Date: 05/13/2019 Time: 14:59 Bed 19 Private MD: Diagnosis: Urinary tract infection, site not specified Presentation: 05/13 15:03 Note pt headed to restroom at this time, urine specimen cup given. tw2 15:10 Note pt still in the restroom at this time. tw2 15:13 Presenting complaint: Patient states: last couple of days i have been going to the [facility] restroom a lot like every 45 mins/hr, i know i cant be , my tubes are tied. Transition of care: patient was not received from another setting of care. Onset of symptoms was May 13, 2019. Risk Assessment: Do you want to hurt yourself or someone else? Patient reports no desire to harm self or others. Initial Sepsis Screen: Does the patient meet any 2 criteria? HR > 90 bpm. No. Patient's initial sepsis screen is negative. Does the patient have a suspected source of infection? No. Patient's initial sepsis screen is negative. Care prior to arrival: None. 15:13 Method Of Arrival: Ambulatory tw2 15:13 Acuity: ESTHELA 3 tw2 Triage Assessment: 15:03 General: Appears in no apparent distress. well groomed, Behavior is calm, cooperative, tw2 appropriate for age. Pain: Complains of pain in pelvis. : Reports urinary frequency. 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 - Coronavirus screen:: The patient has NOT traveled to [place] in the past 14 days. - Social history:: Smoking status: . - Ebola Screening: : Patient denies travel to an Ebola-affected area in the 21 days before illness onset. Screenin:11 Abuse screen: Denies threats or abuse. Denies injuries from another. Nutritional ls4 screening: No deficits noted. Tuberculosis screening: No symptoms or risk factors identified. Fall Risk None identified. Assessment: 15:17 General: Appears in no apparent distress. Behavior is calm, cooperative. ls4 15:17 Neuro: No deficits noted. Cardiovascular: No deficits noted. Respiratory: No deficits ls4 noted. GI: No deficits noted. 15:17 : Reports urinary frequency. ls4 15:17 Derm: No deficits noted. Musculoskeletal: No deficits noted. ls4 16:26 Reassessment: Patient appears in no apparent distress at this time. Patient and/or ls4 family updated on plan of care and expected duration. Pain level reassessed. Patient is alert, oriented x 3, equal unlabored respirations, skin warm/dry/pink. Vital Signs: 15:14 BP 104 / 79; Pulse 108; Resp 17; Temp 97.8; Pulse Ox 96% on R/A; Weight 93.44 kg; tw2 Height 5 ft. 9 in. (175.26 cm); Pain 0/10; 16:48 BP 122 / 85; Pulse 92; Resp 16; Pulse Ox 100% on R/A; mh5 15:14 Body Mass Index 30.42 (93.44 kg, 175.26 cm) tw2 ED Course: 14:59 Patient arrived in ED. as 15:06 Arm band placed on. tw2 15:14 Triage completed. tw2 15:16 Chery White FNP-C is [facility]. snw 15:16 Ike Alvarez MD is Attending Physician. snw 15:23 Neida Todd, SHARRI is Primary Nurse. ls4 15:28 Patient has correct armband on for positive identification. Placed in gown. Call light mh5 in reach. Side rails up X 1. Pulse ox on. NIBP on. 15:28 Urine collected: clean catch specimen, cloudy. mh5 16:11 No provider procedures requiring assistance completed. Patient did not have IV access ls4 during this emergency room visit. Administered Medications: 16:46 Drug: Macrobid 100 mg Route: PO; ls4 Outcome: 16:41 Discharge ordered by . snw 16:50 Condition: good ls4 16:50 Discharged to home ambulatory, with family. ls4 16:50 Discharge instructions given to patient, Instructed on discharge instructions, follow up and referral plans. medication usage, Demonstrated understanding of instructions, follow-up care, medications, Prescriptions given X 1. 16:54 Patient left the ED. ls4 Signatures: Chery White, SQUEEGEE TENDER-C SQUEEGEE TENDER-Csnw Sasha Cotter Tara, RN RN tw2 Gely Cotter [facility] Neida Todd RN RN ls4 Corrections: (The following items were deleted from the chart) 15:14 15:03 : Reports burning with urination, urinary frequency, tw2 tw2
--- NOTE | 2019-05-13 16:42 | EDPHYS ---
Physician Documentation [facility] Name: Eliz Carbone Age: 33 yrs Sex: Female : 1985 Arrival Date: 05/13/2019 Time: 14:59 Bed 19 Private MD: ED Physician Ike Alvarez HPI: 05/13 15:49 This 33 yrs old Black Female presents to ER via Ambulatory with complaints of Urinary snw Problem. 15:49 Onset: The symptoms/episode began/occurred suddenly, 2 day(s) ago, and became snw persistent. Associated signs and symptoms: Pertinent positives: dysuria, frequency. It is unknown whether or not the patient has had similar symptoms in the past. 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 - Coronavirus screen:: The patient has NOT traveled to [place] in the past 14 days. - Social history:: Smoking status: . - Ebola Screening: : Patient denies travel to an Ebola-affected area in the 21 days before illness onset. ROS: 15:48 Constitutional: Negative for fever, chills, and weight loss, Eyes: Negative for injury, snw pain, redness, and discharge, ENT: Negative for injury, pain, and discharge, Neck: Negative for injury, pain, and swelling, Cardiovascular: Negative for chest pain, palpitations, and edema, Respiratory: Negative for shortness of breath, cough, wheezing, and pleuritic chest pain, Abdomen/GI: Negative for abdominal pain, nausea, vomiting, diarrhea, and constipation, Back: Negative for injury and pain, MS/Extremity: Negative for injury and deformity, Skin: Negative for injury, rash, and discoloration, Neuro: Negative for headache, weakness, numbness, tingling, and seizure, Psych: Negative for depression, anxiety, suicide ideation, homicidal ideation, and hallucinations. 15:48 : Positive for urinary symptoms, urinary frequency, small amounts. Exam: 15:48 Constitutional: This is a well developed, well nourished patient who is awake, alert, snw and in no acute distress. Head/Face: Normocephalic, atraumatic. Eyes: Pupils equal round and reactive to light, extra-ocular motions intact. Lids and lashes normal. Conjunctiva and sclera are non-icteric and not injected. Cornea within normal limits. Periorbital areas with no swelling, redness, or edema. Neck: Trachea midline, no thyromegaly or masses palpated, and no cervical lymphadenopathy. Supple, full range of motion without nuchal rigidity, or vertebral point tenderness. No Meningismus. Chest/axilla: Normal chest wall appearance and motion. Nontender with no deformity. No lesions are appreciated. Cardiovascular: Regular rate and rhythm with a normal S1 and S2. No gallops, murmurs, or rubs. Normal PMI, no JVD. No pulse deficits. Respiratory: Lungs have equal breath sounds bilaterally, clear to auscultation and percussion. No rales, rhonchi or wheezes noted. No increased work of breathing, no retractions or nasal flaring. Abdomen/GI: Soft, non-tender, with normal bowel sounds. No distension or tympany. No guarding or rebound. No evidence of tenderness throughout. Back: No spinal tenderness. No costovertebral tenderness. Full range of motion. Skin: Warm, dry with normal turgor. Normal color with no rashes, no lesions, and no evidence of cellulitis. MS/ Extremity: Pulses equal, no cyanosis. Neurovascular intact. Full, normal range of motion. Neuro: Awake and alert, GCS 15, oriented to person, place, time, and situation. Cranial nerves II-XII grossly intact. Motor strength 5/5 in all extremities. Sensory grossly intact. Cerebellar exam normal. Normal gait. Psych: Awake, alert, with orientation to person, place and time. Behavior, mood, and affect are within normal limits. 15:48 ENT: Dental exam: on amoxil for tooth infection. Vital Signs: 15:14 BP 104 / 79; Pulse 108; Resp 17; Temp 97.8; Pulse Ox 96% on R/A; Weight 93.44 kg; tw2 Height 5 ft. 9 in. (175.26 cm); Pain 0/10; 16:48 BP 122 / 85; Pulse 92; Resp 16; Pulse Ox 100% on R/A; mh5 15:14 Body Mass Index 30.42 (93.44 kg, 175.26 cm) tw2 MDM: 15:24 Patient medically screened. snw 16:45 Data reviewed: vital signs, nurses notes. Data interpreted: Pulse oximetry: on room air snw is 96 %. Interpretation: acceptable. Counseling: I had a detailed discussion with the patient and/or guardian regarding: the historical points, exam findings, and any diagnostic results supporting the discharge/admit diagnosis, lab results, the need for outpatient follow up, to return to the emergency department if symptoms worsen or persist or if there are any questions or concerns that arise at home. Special discussion: Based on the history and exam findings, there is no indication for further emergent testing or inpatient evaluation. I discussed with the patient/guardian the need to see the primary care provider for further evaluation of the symptoms. 05/13 15:26 Order name: Urine Dipstick--Ancillary (enter results) bd 05/13 15:26 Order name: Urine --Ancillary (enter results) bd 05/13 16:41 Order name: Urine Microscopic Only; Complete Time: 16:52 EDMS 05/13 15:16 Order name: Urine Test (obtain specimen); Complete Time: 15:27 snw 05/13 15:16 Order name: Urine Dipstick-Ancillary (obtain specimen); Complete Time: 15:27 snw Administered Medications: 16:46 Drug: Macrobid 100 mg Route: PO; ls4 Disposition: 17:08 Co-signature as Attending Physician, Ike Alvarez MD I agree with the assessment and kdr plan of care. Disposition: 05/13/19 16:41 Discharged to Home. Impression: Urinary tract infection, site not specified. - Condition is Stable. - Discharge Instructions: Urinary Tract Infection, Adult, Rehydration, Adult. - Prescriptions for Macrobid 100 mg Oral Capsule - take 1 capsule by ORAL route every 12 hours for 10 days; 20 capsule. - Medication Reconciliation Form, Thank You Letter, Antibiotic Education, Prescription Opioid Use, Work release form form. - Follow up: Emergency Department; When: As needed; Reason: Worsening of condition. Follow up: Private Physician; When: 2 - 3 days; Reason: Recheck today's complaints, Continuance of care, Re-evaluation by your physician. Signatures: Dispatcher [employer] Ike Fried MD MD [facility] Chery White, EXTRACTOR LOADER AND UNLOADER-C EXTRACTOR LOADER AND UNLOADER-Csnw Zandra Rosario, RN RN tw2 Neida Todd RN RN ls4 Corrections: (The following items were deleted from the chart) 16:54 16:41 05/13/2019 16:41 Discharged to Home. Impression: Urinary tract infection, site ls4 not specified. Condition is Stable. Forms are Work release form, Medication Reconciliation Form, Thank You Letter, Antibiotic Education, Prescription Opioid Use. Follow up: Emergency Department; When: As needed; Reason: Worsening of condition. Follow up: Private Physician; When: 2 - 3 days; Reason: Recheck today's complaints, Continuance of care, Re-evaluation by your physician. snw
[2019-05-13] MEDS ORDERED: NITROFURAN MACRO 100 MG CAP PO ONE (16:49)
[2019-05-13 17:10] VITALS: TEMP 97.8
[2019-05-13 17:11] VITALS: BP 122/85; O2SAT 100
[2019-05-13 17:58] LABS: Urine Blood 3+ (NEG); Urine Glucose NEGATIVE (NEG); Urine Protein 1+ (NEG); Urine Specific Gravity 1.025 (1.005-1.030)
== END 2019-05-13 16:54 | disposition home or self-care (01) ==
LOC: ER 14:57
DX: N39.0 Urinary tract infection, site not specified (principal); Z88.2 Allergy status to sulfonamides
CPT/HCPCS: 81003; 81015; 81025; 87086; 87088; 99284